=== PATIENT | female | born 1990 | race African-American/Black ===

== ENCOUNTER 2016-08-10 16:04 | Emergency (ER) | payer MEDICAID ==
[2016-08-10 16:23] VITALS: BP 166/106
--- NOTE | 2016-08-10 16:37 | ER Document Report ---
HPI - HPI Patient complains to provider of: dental pain Onset: Other - 4 months Onset/Duration: Persistent, Worse Quality of pain: Sharp Pain Level: 5 Context: Patient complains of dental pain for the past 4 months. Patient has an appointment on 08/28/2016. Patient denies any fever or facial swelling. Patient complains of headache on the same side as her toothache. Patient does have a history of hypertension and has been compliant with her medications. Associated Symptoms: Headache, Other - Dental pain. denies: Fever Exacerbated by: Denies Relieved by: Denies Similar symptoms previously: Yes Recently seen / treated by doctor: No - ROS ROS below otherwise negative: Yes Systems Reviewed and Negative: Yes All other systems reviewed and negative - CONSTITUTIONAL Constitutional: DENIES: Fever, Chills - EENT Notes: Dental pain - NEURO Neurology: REPORTS: Headache - GASTROINTESTINAL Gastrointestinal: DENIES: Nausea, Patient vomiting - REPRODUCTIVE Reproductive: DENIES: : - MUSCULOSKELETAL Musculoskeletal: DENIES: Extremity pain, Back Pain, Neck Pain - DERM Skin Color: Normal Skin Problems: None Past Medical History - General Information source: Patient - Social History Smoking Status: Current Every Day Smoker Frequency of alcohol use: None Drug Abuse: None Occupation: none Lives with: Family Family History: CAD, CVA, DM, Hyperlipidemia, Hypertension, Malignancy, Thyroid Disfunction - Past Medical History Cardiac Medical History: Reports: Hx Hypertension - is on labatolol took today takes bid. Has severe tooth ache Neurological Medical History: Reports: Hx Migraine Past Surgical History: Reports: Hx Oral Surgery - wisdom teeth - Immunizations Immunizations up to date: No Hx Diphtheria, Pertussis, Tetanus Vaccination: No Vertical Provider Document - CONSTITUTIONAL Agree With Documented VS: Yes Exam Limitations: No Limitations General Appearance: WD/WN, No Apparent Distress - INFECTION CONTROL TRAVEL OUTSIDE OF THE [place] IN LAST 30 DAYS: No - HEENT HEENT: Atraumatic, Normocephalic. negative: Pharyngeal Exudate, Pharyngeal Tenderness, Pharyngeal Erythema, Tympanic Membrane Red Mouth Diagram: 1 - tenderness, decay, no gingival abscess no trismus - NECK Neck: Normal Inspection, Supple. negative: Lymphadenopathy-Left, Lymphadenopathy-Right - RESPIRATORY Respiratory: Breath Sounds Normal, No Respiratory Distress O2 Sat by Pulse Oximetry: 100 - CARDIOVASCULAR Cardiovascular: Regular Rate, Regular Rhythm, No Murmur - MUSCULOSKELETAL/EXTREMETIES Musculoskeletal/Extremeties: MAEW - NEURO Level of Consciousness: Awake, Alert, Appropriate Motor/Sensory: No Motor Deficit - DERM Integumentary: Warm, Dry, No Rash Course - Re-evaluation Re-evalutation: 08/10/16 16:49 Patient [address] herself here. Patient is just requesting a prescription for something to take when she gets home. Patient's had headaches in the past and this is typical of headaches that she has had previously. - Vital Signs Vital signs: Temp Pulse Resp BP Pulse Ox 98.3 F 91 20 166/106 H 100 08/10/16 16:22 08/10/16 16:22 08/10/16 16:22 08/10/16 16:22 08/10/16 16:22 Discharge - Discharge Clinical Impression: Toothache, History of hypertension Condition: Stable Disposition: HOME, SELF-CARE Instructions: Oral Narcotic Medication ([facility]), Toothache ([facility]), Penicillin V K ( [facility]) Additional Instructions: Return immediately for any new or worsening symptoms Followup with your dental care provider, call tomorrow to make a followup appointment Prescriptions: Naproxen [Naprosyn 250 Nmg Tablet] 1 tab PO BID #14 tablet Oxycodone HCl/Acetaminophen [Percocet 5-325 mg Tablet] 1 tab PO ASDIR PRN #8 tablet PRN Reason: Penicillin V Potassium [Penicillin Vk 500 mg Tablet] 500 mg PO BID #20 tablet Referrals: [facility] [Provider Group] - Follow up as needed
== END 2016-08-10 17:10 | disposition home or self-care (01) ==
LOC: ER 16:04
DX: K08.9 Disorder of teeth and supporting structures, unspecified (principal); R51 Headache; F17.200 Nicotine dependence, unspecified, uncomplicated; I10 Essential (primary) hypertension
CPT/HCPCS: 99282

== ENCOUNTER 2016-08-17 14:25 | Emergency (ER) | payer MEDICAID ==
[2016-08-17] MEDS ORDERED: PENICILLIN V POTASSIUM 500 MG TABLET PO ONE (14:51)
[2016-08-17] MEDS ORDERED: ACETAMINOPHEN 325 MG TABLET PO ONE (14:51)
--- NOTE | 2016-08-17 14:51 | ER Document Report ---
ED Medical Screen (RME) - General Stated Complaint: TOOTH PAIN Time seen by provider: 14:50 Mode of Arrival: Ambulatory Information source: Patient Notes: 25 yo female c/o lower left tooth pain for several weeks, has a hole in it. Can; t stand the pain anymore. TRAVEL OUTSIDE OF THE [place] IN LAST 30 DAYS: No - Related Data Allergies/Adverse Reactions: hydrocodone [From [place]] Allergy (Verified 07/05/16 14:54) tramadol Allergy (Verified 07/05/16 14:54) diphenhydramine [From Benadryl] Adverse Reaction (Verified 07/05/16 14:54) Past Medical History - Past Medical History Cardiac Medical History: Reports: Hx Hypertension - is on labatolol took today takes bid. Has severe tooth ache Neurological Medical History: Reports: Hx Migraine Past Surgical History: Reports: Hx Oral Surgery - wisdom teeth - Immunizations Immunizations up to date: No Hx Diphtheria, Pertussis, Tetanus Vaccination: No
--- NOTE | 2016-08-17 17:03 | ER Document Report ---
ED Oral Problem - General Chief Complaint: Toothache Stated Complaint: TOOTH PAIN Time seen by provider: 16:58 Mode of Arrival: Ambulatory Information source: Patient Notes: 25-year-old female presents complaining about pain to left lower premolar where she is at a republican break off. He's had multiple emergency department visits for this complaint says it only intermittently causes problems that she has an appointment next week with a dentist for definitive management. She reports she is on antibiotics now for. She complains about diffuse headache which she says she Gets When the Dental Pain Flares. She Denies Fever, Chills, Nausea, Vomiting, Cough, Shortness Breath, Sore Throat, Chest or Back Pain. Physical Exam: General: Alert, appears well. HEENT: Normocephalic. Atraumatic. PERRLA. Extraocular movements intact. Oropharynx clear. There is obvious dental defect in the left lower premolar with no surrounding erythema or discharge no stridor horses drooling Neck: Supple. Non-tender. Respiratory: No respiratory distress. C Skin: Warm. Dry. Normal color. TRAVEL OUTSIDE OF THE [place] IN LAST 30 DAYS: No - Related Data Allergies/Adverse Reactions: hydrocodone [From [place]] Allergy (Verified 08/17/16 14:51) tramadol Allergy (Verified 08/17/16 14:51) diphenhydramine [From Benadryl] Adverse Reaction (Verified 08/17/16 14:51) Past Medical History - General Information source: Patient - Social History Smoking Status: Current Some Day Smoker Chew tobacco use (# tins/day): No Frequency of alcohol use: None Drug Abuse: None Family History: CAD, CVA, DM, Hyperlipidemia, Hypertension, Malignancy, Thyroid Disfunction Patient has suicidal ideation: No Patient has homicidal ideation: No - Past Medical History Cardiac Medical History: Reports: Hx Hypertension - is on labatolol took today takes bid. Has severe tooth ache Neurological Medical History: Reports: Hx Migraine Past Surgical History: Reports: Hx Oral Surgery - wisdom teeth - Immunizations Immunizations up to date: No Hx Diphtheria, Pertussis, Tetanus Vaccination: No Review of Systems - Review of Systems Constitutional: See HPI EENT: See HPI Cardiovascular: denies: Chest pain Respiratory: denies: Short of breath Gastrointestinal: denies: Abdominal pain Genitourinary: denies: Burning Musculoskeletal: denies: Back pain Hematologic/Lymphatic: denies: Swollen glands Neurological/Psychological: denies: Weakness Course - Re-evaluation Re-evalutation: 08/17/16 17:00 Patient does have a dental defect that would certainly be consistent with pain requiring narcotic analgesia. His however about the potential for abuse and diversion of these medications and that she should keep her dental appointment for definitive management without fail and she is in agreement Discharge - Discharge Clinical Impression: Dental caries Condition: Stable Disposition: HOME, SELF-CARE Additional Instructions: Dental Infection or Abscess You have an infection, perhaps an abscess (pus formation) of the gum around one of your teeth, which is probably decayed. If there is an abscess, it may drain on its own or it may need to be opened or lanced. Severe swelling or drainage around a tooth usually means a deep dental abscess which usually requires evaluation and treatment by a dentist or oral surgeon. Antibiotics may be prescribed while awaiting dental treatment. If you develop high fever with chills, worsening pain, or increasing swelling in the area, see a dentist or oral surgeon immediately or return to the Emergency Department immediately. Keep your dental appointment as scheduled Prescriptions: Oxycodone HCl/Acetaminophen [Percocet 5-325 mg Tablet] 1 tab PO QHS #15 tablet
[2016-08-17 17:19] VITALS: BP 149/94
== END 2016-08-17 17:19 | disposition home or self-care (01) ==
LOC: ER 14:25
DX: K02.9 Dental caries, unspecified (principal); K08.89 Other specified disorders of teeth and supporting structures; R51 Headache; F17.210 Nicotine dependence, cigarettes, uncomplicated
CPT/HCPCS: 99282; J3490 ×2

== ENCOUNTER 2016-09-27 20:27 | Emergency (ER) | payer MEDICAID ==
[2016-09-27 21:31] VITALS: BP 152/93
[2016-09-27] MEDS ORDERED: IBUPROFEN 800 MG TABLET PO ONE (21:35)
[2016-09-27] MEDS ORDERED: ONDANSETRON 4 MG TAB.RAPDIS PO ONE (21:35)
--- NOTE | 2016-09-27 21:36 | ER Document Report ---
ED Medical Screen (RME) - General Stated Complaint: FLU LIKE SYMPTOMS Mode of Arrival: Ambulatory Information source: Patient Notes: Patient complains of generalized body aches, chills, headache, cough for the past week. No fever. Patient does complain of nausea and vomiting 1. Patient reports diarrhea yesterday, none today. hx: Hypertension I have greeted and performed a rapid initial assessment of this patient. A comprehensive ED assessment and evaluation of the patient, analysis of test results and completion of the medical decision making process will be conducted by additional ED providers. TRAVEL OUTSIDE OF THE [place] IN LAST 30 DAYS: No - Related Data Allergies/Adverse Reactions: hydrocodone [From [place]] Allergy (Verified 08/17/16 14:51) tramadol Allergy (Verified 08/17/16 14:51) diphenhydramine [From Benadryl] Adverse Reaction (Verified 08/17/16 14:51) Past Medical History - Past Medical History Cardiac Medical History: Reports: Hx Hypertension - is on labatolol took today takes bid. Has severe tooth ache Neurological Medical History: Reports: Hx Migraine Past Surgical History: Reports: Hx Oral Surgery - wisdom teeth - Immunizations Immunizations up to date: No Hx Diphtheria, Pertussis, Tetanus Vaccination: No Physical Exam - Vital signs Vitals: Temp Pulse Resp BP 97.5 F 66 18 152/93 H 09/27/16 21:30 09/27/16 21:30 09/27/16 21:30 09/27/16 21:30 - General General appearance: Appears well, Alert In distress: None Course - Vital Signs Vital signs: Temp Pulse Resp BP Pulse Ox 97.5 F 66 18 152/93 H 09/27/16 21:30 09/27/16 21:30 09/27/16 21:30 09/27/16 21:30
== END 2016-09-27 22:03 | disposition left against medical advice (07) ==
LOC: ER 20:27
DX: Z53.9 Procedure and treatment not carried out, unspecified reason (principal); R52 Pain, unspecified; R51 Headache; R05 Cough; R11.2 Nausea with vomiting, unspecified; R19.7 Diarrhea, unspecified
CPT/HCPCS: 99281

== ENCOUNTER 2016-11-14 10:14 | Emergency (ER) | payer MEDICAID ==
[2016-11-14] MEDS ORDERED: IBUPROFEN 800 MG TABLET PO ONE (11:00)
[2016-11-14] MEDS ORDERED: ACETAMINOPHEN 325 MG TABLET PO ONE (11:02)
--- NOTE | 2016-11-14 11:05 | ER Document Report ---
ED Oral Problem - General Chief Complaint: Toothache Stated Complaint: TOOTH PAIN Time seen by provider: 10:59 Mode of Arrival: Ambulatory Information source: Patient Notes: 26-year-old female presented to ED for dental pain to the left upper back jaw. She had teeth removed a week ago and she states that the dentist headache sinus cavity when he did that and he gave her pain medicine at the time that he has run out of pain medicine and cannot get back into him for another week and she is hurting in her jaw. TRAVEL OUTSIDE OF THE [place] IN LAST 30 DAYS: No - HPI Patient complains to provider of: Toothache Onset: Last week - Patient has been given multiple prescriptions for Percocet for dental pain in the last month Quality of pain: Sharp, Throbbing Context: Recent dental extractions Associated symptoms: Jaw pain Worsened by: Cold Similar symptoms previously: Yes Recently seen / treated by doctor/dentist: Yes - Related Data Allergies/Adverse Reactions: hydrocodone [From [place]] Allergy (Verified 08/17/16 14:51) tramadol Allergy (Verified 08/17/16 14:51) diphenhydramine [From Benadryl] Adverse Reaction (Verified 08/17/16 14:51) Past Medical History - General Information source: Patient - Social History Smoking Status: Former Smoker Cigarette use (# per day): No Chew tobacco use (# tins/day): No Smoking Education Provided: No Frequency of alcohol use: None Drug Abuse: None Occupation: none Lives with: Parents Family History: CAD, CVA, DM, Hyperlipidemia, Hypertension, Malignancy, Thyroid Disfunction Patient has suicidal ideation: No Patient has homicidal ideation: No - Past Medical History Cardiac Medical History: Reports: Hx Hypertension - is on labatolol took today takes bid. Has severe tooth ache Pulmonary Medical History: Reports: None EENT Medical History: Reports: None Neurological Medical History: Reports: Hx Migraine Endocrine Medical History: Reports: None Renal/ Medical History: Reports: None Malignancy Medical History: Reports: None GI Medical History: Reports: None Musculoskeltal Medical History: Reports None Skin Medical History: Reports None Psychiatric Medical History: Reports: None Traumatic Medical History: Reports: None Infectious Medical History: Reports: None Past Surgical History: Reports: Hx Oral Surgery - wisdom teeth - Immunizations Immunizations up to date: No Hx Diphtheria, Pertussis, Tetanus Vaccination: No Review of Systems - Review of Systems Constitutional: No symptoms reported EENT: Mouth pain, Other - Jaw pain at site of previous dental extraction Cardiovascular: No symptoms reported Respiratory: No symptoms reported Gastrointestinal: No symptoms reported Genitourinary: No symptoms reported Female Genitourinary: No symptoms reported Musculoskeletal: No symptoms reported Skin: No symptoms reported Hematologic/Lymphatic: No symptoms reported Neurological/Psychological: No symptoms reported Physical Exam - Vital signs Vitals: Temp Pulse Resp BP Pulse Ox 98.7 F 95 16 183/107 H 100 11/14/16 10:18 11/14/16 10:18 11/14/16 10:18 11/14/16 10:18 11/14/16 10:18 Interpretation: Normal - General General appearance: Appears well, Alert - HEENT Head: Normocephalic, Atraumatic Eyes: Normal Pupils: PERRL Ears: Normal External canal: Normal Tympanic membrane: Normal Sinus: Normal Nasal: Normal Mouth/Lips: Normal Mucous membranes: Normal Teeth diagram: 1 - Recent dental extractions. No redness swelling no signs or symptoms of dry socket at this time. Patient recommended to follow-up with the dentist who extracted the teeth. Pharynx: Normal Neck: Normal - Respiratory Respiratory status: No respiratory distress Chest status: Nontender Breath sounds: Normal Chest palpation: Normal - Cardiovascular Rhythm: Regular Heart sounds: Normal auscultation Murmur: No - Abdominal Inspection: Normal Distension: No distension Bowel sounds: Normal Tenderness: Nontender Organomegaly: No organomegaly - Back Back: Normal, Nontender - Extremities General upper extremity: Normal inspection, Nontender, Normal color, Normal ROM , Normal temperature General lower extremity: Normal inspection, Nontender, Normal color, Normal ROM , Normal temperature, Normal weight bearing. No: April's sign - Neurological Neuro grossly intact: Yes Cognition: Normal Orientation: AAOx4 [place] Coma Scale Eye Opening: Spontaneous [place] Coma Scale Verbal: Oriented [place] Coma Scale Motor: Obeys Commands [place] Coma Scale Total: 15 Speech: Normal Motor strength normal: LUE, RUE, LLE, RLE Sensory: Normal - Psychological Associated symptoms: Normal affect, Normal mood - Skin Skin Temperature: Warm Skin Moisture: Dry Skin Color: Normal Course - Vital Signs Vital signs: Temp Pulse Resp BP Pulse Ox 97.7 F 80 20 148/106 H 100 11/14/16 11:23 11/14/16 11:23 11/14/16 11:23 11/14/16 11:23 11/14/16 11:23 Discharge - Discharge Clinical Impression: right upper jaw pain, recent dental extraction Condition: Stable Disposition: HOME, SELF-CARE Additional Instructions: you were seen today for general pain in the area apartment recent dental extraction. The dentist gave you a prescription for Percocet and he states were not able to get back in to see him today. I am not able to keep using narcotics for this dental pain please try to recall the dentist again and get back in to see him.. Chronic Pain Control Stress, inactivity, and depression make pain more severe regardless of the cause of the pain. Stress and poor physical condition can cause pain such as headaches and backache. Relaxation: Rest in a quiet place with your eyes closed for 20 minutes twice daily. Concentrate on a pleasant image, or simply "feel" your breathing. Clear your mind. Stress management: Deal with your "stressors." Either take action, or eliminate the stressor from your life. Don't let things hang over you. Accept those things you can't change. Nutrition: Eat small, balanced meals -- don't skip, don't overeat. Meals should be high-carbohydrate, low-sugar, low-fat. Exercise: Exercise helps painful conditions and eases stress. Get 30 minutes of moderate exercise, five days a week. Do an activity that does not flare your pain. Precautions: Pain which continues to disrupt daily activities, or which changes in nature, requires a medical evaluation. Pain Clinic referral is available. We do not manage chronic pain in the Emergency Department. We will try to appropriately help you through an acute flare of your chronic painful condition , but for on-going chronic pain that does not improve, you will need to see your private doctor or painter hand. We do not provide repeated medication management of chronic painful conditions. If you wish, we can provide the name of local pain management physicians. TOOTHACHE: Your pain is due to recent dental extraction. The tooth must be repaired in order for you to feel better. You will, therefore, be referred to a dentist. We do not have dentists on the staff at [facility]. Severe swelling or drainage around a tooth usually means a dental abscess. This also requires evaluation and treatment by the dentist, but antibiotics may be prescribed while awaiting dental treatment. You should be rechecked immediately if you develop major swelling of the face, increasing pain, a lump in the jaw or gums, headache, difficulty swallowing, or fever. FOLLOW-UP CARE: You have been referred for follow-up care to the dentists listed below. Call the dentists office for an appointment as you were instructed or within the next two days. If you experience worsening or a significant change in your symptoms, notify the physician immediately or return to the Emergency Department at any time for re-evaluation. [facility] [address] [place] [address] [facility] [address] [facility] [address] [facility] ([facility]) [facility] [address] [email or web address] [address] [place] [address] Thursday- 8:00am to 5:00 pm Will see patients from other [facility]. Charges based on income and family size and accepts Medicare, Medicaid, and Insurances Will pull molars [facility] [address] Hours of Operation 8:00 am - 4:30 pm weekdays The following dental offices accept Medicaid: [facility] Dr. Begum Dr. Kevin Dr. Mcrae Dr. Humphries Luís Trejo Lutsavage, and [facility] Dr. Schaeffer ([place]) Dr. Mitchell ([place]) [facility] Drs. Briceño and Janes ([place]) Dr. Landry ([place]) [facility] Dr. Delgado ([place]) Drs. Lezama and ([place]) Medicaid Care Line Forms: Elevated Blood Pressure Referrals: GIUSEPPE GOEL MD [Primary Care Provider] - Follow up as needed
[2016-11-14 11:24] VITALS: BP 148/106
== END 2016-11-14 11:24 | disposition home or self-care (01) ==
LOC: ER 10:14
DX: K08.109 Complete loss of teeth, unspecified cause, unspecified class (principal); R68.84 Jaw pain; M54.89 Other dorsalgia; Z87.891 Personal history of nicotine dependence
CPT/HCPCS: 99282; J3490

== ENCOUNTER 2017-03-08 17:20 | Emergency (ER) | payer MEDICAID ==
[2017-03-08 17:50] VITALS: BP 157/94
[2017-03-08] MEDS ORDERED: OXYCODONE-ACETAMINOPHEN 5-325 MG TABLET PO ONE (20:18)
[2017-03-08 20:37] LABS: AMORPHOUS SEDIMENT,URINE TRACE /HPF; APPEARANCE,URINE CLEAR; BILIRUBIN,URINE NEGATIVE (NEGATIVE); GLUCOSE, URINE NEGATIVE (NEGATIVE); KETONES,URINE NEGATIVE (NEGATIVE); LEUKOCYTE ESTERASE,URINE NEGATIVE (NEGATIVE); NITRITE,URINE NEGATIVE (NEGATIVE); PROTEIN,URINE 100 mg/dL (NEGATIVE); UROBILINOGEN,URINE NEGATIVE mg/dL (<2.0)
[2017-03-08] MEDS ORDERED: METRONIDAZOLE 500 MG TABLET PO ONE (20:43)
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
[2017-03-08 20:46] LABS: CHLAM PCR NOT DETECTED (NOT DETECT)
== END 2017-03-08 20:50 | disposition home or self-care (01) ==
LOC: ER 17:20
DX: G89.29 Other chronic pain (principal); M54.5 Low back pain; N76.0 Acute vaginitis; B96.89 Other specified bacterial agents as the cause of diseases classified elsewhere; I10 Essential (primary) hypertension; Z91.81 History of falling; Z88.5 Allergy status to narcotic agent
CPT/HCPCS: 99283; 87210; 81025; 81001; 87491; 87591; J3490

== ENCOUNTER 2017-04-14 18:26 | Emergency (ER) | payer MEDICAID ==
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
[2017-04-14 19:25] LABS: ABSOLUTE BASOPHILS # (AUTO) 0.1 10^3/uL (0.0-0.2); ABSOLUTE MONOCYTES (AUTO) 0.6 10^3/uL (0.1-1.4); ABSOLUTE NEUT (AUTO) 3.9 10^3/uL (1.7-8.2); BASOPHILS % (AUTO) 0.9 % (0-2); EOSINOPHILS % (AUTO) 0.5 % (0-6); HEMATOCRIT 36.7 % (36.0-47.0); HEMOGLOBIN 12.5 g/dL (12.0-15.5); HGB HCT DIFFERENCE 0.8; LYMPHOCYTES % (AUTO) 39.9 % (13-45); MEAN CORPUSCULAR HEMOGLOBIN 27.8 pg (27.0-33.4); MEAN CORPUSCULAR HGB CONC 34.1 g/dL (32.0-36.0); MEAN CORPUSCULAR VOLUME 81 fl (80-97); RED BLOOD COUNT 4.52 10^6/uL (3.72-5.28); RED CELL DISTRIBUTION WIDTH 12.8 % (11.5-14.0); SEGMENTED NEUTROPHILS % (AUTO) 50.7 % (42-78); WHITE BLOOD COUNT 7.6 10^3/uL (4.0-10.5)
[2017-04-14 19:30] LABS: APPEARANCE,URINE SLIGHTLY-CLOUDY; BILIRUBIN,URINE SMALL (NEGATIVE); GLUCOSE, URINE NEGATIVE (NEGATIVE); KETONES,URINE TRACE mg/dL (NEGATIVE); LEUKOCYTE ESTERASE,URINE TRACE (NEGATIVE); NITRITE,URINE NEGATIVE (NEGATIVE); PROTEIN,URINE 100 mg/dL (NEGATIVE); URINE SPECIFIC GRAVITY 1.038
[2017-04-14 19:42] LABS: ANION GAP 14 (5-19); BLOOD UREA NITROGEN 13 mg/dL (7-20); CALCIUM 10.2 mg/dL (8.4-10.2); CARBON DIOXIDE 26 mmol/L (22-30); CHLORIDE 103 mmol/L (98-107); CREATININE RESULT 0.75 mg/dL (0.52-1.25); GLUCOSE 83 mg/dL (75-110); POTASSIUM 3.7 mmol/L (3.6-5.0); SODIUM 142.8 mmol/L (137-145)
--- NOTE | 2017-04-14 19:50 | ER Document Report ---
ED General - General Chief Complaint: Back Pain Stated Complaint: FALL BACK PAIN Time Seen by Provider: 04/14/17 18:46 Mode of Arrival: Ambulatory Information source: Patient Notes: 26-year-old female presents to ED for pelvic pain and discharge. She states the pelvic discharge since . She thought it was a yeast infection and took Monistat and Thursday. Then the discharge changed and started to have an odor and look like a bacterial vaginosis so she stopped the Monistat. She states that she has a pelvic pain with the foul-smelling discharge. She denies any pain or problems with urination. She does not believe she is . She states that last night she fell down the stairs and injured her lower back. She does not have any bruises and is able to walk. She denies any loss of bowel or bladder control she denies any loss of sensation denies any loss of any muscle control. Patient offered Tylenol and Lidoderm for her pain and refused both patient was given an ice pack for her pain. TRAVEL OUTSIDE OF THE [place] IN LAST 30 DAYS: No - HPI Onset: Other - Onset/Duration: Gradual Quality of pain: Achy, Sharp Severity: Severe Pain Level: 5 Associated symptoms: Other - Vaginal discharge and pelvic pain, back pain Exacerbated by: Movement Relieved by: Denies Similar symptoms previously: Yes Recently seen / treated by doctor: No - Related Data Allergies/Adverse Reactions: hydrocodone [From [place]] Allergy (Verified 04/14/17 18:44) ketorolac [From Toradol] Allergy (Verified 04/14/17 18:44) tramadol Allergy (Verified 04/14/17 18:44) diphenhydramine [From Benadryl] Adverse Reaction (Verified 04/14/17 18:44) Past Medical History - General Information source: Patient - Social History Smoking Status: Never Smoker Cigarette use (# per day): No Chew tobacco use (# tins/day): No Smoking Education Provided: No Frequency of alcohol use: None Drug Abuse: None Lives with: Family Family History: CAD, CVA, DM, Hyperlipidemia, Hypertension, Malignancy, Thyroid Disfunction Patient has suicidal ideation: No Patient has homicidal ideation: No - Past Medical History Cardiac Medical History: Reports: Hx Hypertension - is on labatolol took today takes bid. Has severe tooth ache Pulmonary Medical History: Reports: None EENT Medical History: Reports: None Neurological Medical History: Reports: Hx Migraine Endocrine Medical History: Reports: None Renal/ Medical History: Reports: None Malignancy Medical History: Reports: None GI Medical History: Reports: None Musculoskeltal Medical History: Reports Other - chronic back pain Skin Medical History: Reports None Psychiatric Medical History: Reports: None Traumatic Medical History: Reports: None Infectious Medical History: Reports: None Past Surgical History: Reports: Hx Oral Surgery - wisdom teeth - Immunizations Immunizations up to date: No Hx Diphtheria, Pertussis, Tetanus Vaccination: No Review of Systems - Review of Systems Constitutional: No symptoms reported EENT: No symptoms reported Cardiovascular: No symptoms reported Respiratory: No symptoms reported Gastrointestinal: No symptoms reported Genitourinary: No symptoms reported Female Genitourinary: No symptoms reported Musculoskeletal: No symptoms reported Skin: No symptoms reported Hematologic/Lymphatic: No symptoms reported Neurological/Psychological: No symptoms reported -: Yes All other systems reviewed and negative Physical Exam - Vital signs Vitals: Temp Pulse Resp BP Pulse Ox 98.6 F 90 18 181/97 H 100 04/14/17 18:37 04/14/17 18:37 04/14/17 18:37 04/14/17 18:37 04/14/17 18:37 Interpretation: Normal - General General appearance: Appears well, Alert - HEENT Head: Normocephalic, Atraumatic Eyes: Normal Pupils: PERRL - Respiratory Respiratory status: No respiratory distress Chest status: Nontender Breath sounds: Normal Chest palpation: Normal - Cardiovascular Rhythm: Regular Heart sounds: Normal auscultation Murmur: No - Abdominal Inspection: Normal Distension: No distension Bowel sounds: Normal Tenderness: Nontender Organomegaly: No organomegaly - Genitourinary External exam: Normal Speculum exam: Vaginal discharge - very foul smelling brownish colored vaginal discharge Vaginal bleeding: Mild Bimanuel exam: Cervical motion tender, Adnexal tenderness - Back Back: Normal, Nontender - Extremities General upper extremity: Normal inspection, Nontender, Normal color, Normal ROM , Normal temperature General lower extremity: Normal inspection, Nontender, Normal color, Normal ROM , Normal temperature, Normal weight bearing. No: April's sign - Neurological Neuro grossly intact: Yes Cognition: Normal Orientation: AAOx4 [place] Coma Scale Eye Opening: Spontaneous [place] Coma Scale Verbal: Oriented [place] Coma Scale Motor: Obeys Commands [place] Coma Scale Total: 15 Speech: Normal Motor strength normal: LUE, RUE, LLE, RLE Sensory: Normal - Psychological Associated symptoms: Normal affect, Normal mood - Skin Skin Temperature: Warm Skin Moisture: Dry Skin Color: Normal Course - Re-evaluation Re-evalutation: 04/14/17 22:02 Ultrasound and labs discussed with patient. Written reports of labs and ultrasound given to patient. Patient was treated with azithromycin and Rocephin for her PID. Discussed positive chlamydia result with patient. Patient was given instructions about no sexual contact with anyone for 7 days after treatment. Patient was also instructed to follow-up with her primary doctor and with [facility] concerning her hydrosalpinx. - Vital Signs Vital signs: Temp Pulse Resp BP Pulse Ox 98.6 F 90 18 181/97 H 100 04/14/17 18:37 04/14/17 18:37 04/14/17 18:37 04/14/17 18:37 04/14/17 18:37 - Laboratory Result Diagrams: 04/14/17 19:00 04/14/17 19:00 Laboratory results interpreted by me: 04/14/17 04/14/17 19:00 19:58 Urine Protein 100 H Urine Ketones TRACE H Urine Bilirubin SMALL H Urine Urobilinogen 4.0 H Ur Leukocyte Esterase TRACE H Urine Ascorbic Acid 20 H Chlamydia DNA (PCR) DETECTED H - Diagnostic Test Radiology reviewed: Image reviewed, Reports reviewed Discharge - Discharge Clinical Impression: Pelvic pain, Hydrosalpinx, Vaginal discharge Condition: Stable Disposition: HOME, SELF-CARE Additional Instructions: PELVIC PAIN: There are many causes of pain in the pelvic area. The cause could be the tubes, ovaries, uterus, intestines, appendix, pelvic muscles and connective tissue, or the urinary tract. The cause of your pelvic pain is not clear. However, it seems safe to treat you outside the hospital. If the pain sounds like a temporary problem, we sometimes wait to see if it goes away. Other patients may need additional tests, such as pelvic ultrasound or cultures. Conditions may change. Call us or come back for reexamination if any problems occur, such as: (1) Pain that becomes more severe, steady, or becomes concentrated in one specific area. Also, pain that is more severe with movement or coughing. (2) Vomiting that persists or becomes more frequent. (3) Blood in the vomitus, urine, or bowel movements. Blood in the stool may have a tarry or black appearance. (4) Shaking chills or fever greater than 100 degrees. (5) The abdomen becomes more distended or swollen. (6) Bowel movements cease. (7) Heavy vaginal bleeding. PELVIC INFLAMMATORY DISEASE: You have been diagnosed as having pelvic inflammatory disease (PID). This is an infection of the fallopian tubes and surrounding areas of the pelvis. Symptoms are usually pelvic pain and discharge. The infection can do permanent damage to the tubes and ovaries. It should be taken very seriously. Treatment is antibiotics, which may be given by vein or by injection if the infection seems serious. It's important that you receive all recommended medication. Condoms help prevent spread of this infection to others. Because this infection is spread sexually, it's important that your sexual partner be checked before resuming sexual relations. If a culture shows gonorrhea or chlamydia organisms, the law requires that this be reported to the health department. Call the doctor or return at once if you develop increasing fever, rash, severe pelvic pain, vaginal bleeding (other than your period), or problems with your bladder or bowels. CEPHALOSPORINS: An antibiotic of the cephalosporin class has been prescribed. This type of antibiotic covers a wide variety of infections, including those of the skin, lungs, middle ear, and urinary tract. This antibiotic is somewhat similar to the penicillin family. In rare cases , a person who is allergic to penicillin will also be allergic to this medication. If you have had a severe allergic reaction to penicillin, and have not taken this antibiotic since that time, notify your doctor. Antibiotics which cover many germs ("broad spectrum" antibiotics) are more likely to cause diarrhea or "yeast" infections. Women prone to vaginal yeast problems may suffer an attack after taking this antibiotic. In infants, oral thrush (white spots "stuck" on the cheek) or yeast diaper rash may result. See your doctor if these problems occur. Call the doctor at once if you develop hives, itching, shortness of breath , or lightheadedness. AZITHROMYCIN: Azithromycin (Zithromax) is a broad spectrum antibiotic in the same class as erythromycin. It can treat a variety of bacterial infections, but is most frequently used for respiratory infections. Azithromycin is extremely long-lasting. It accumulates in body tissues and continues to kill bacteria for many days. In order to improve absorption, Azithromycin should be taken at least one hour before or two hours after a meal. It does not have the same strong tendency to upset the stomach as erythromycin and is usually very well tolerated. Patients who have had a rash or other true allergic reactions to erythromycin should not take this medication. Call if you develop gastrointestinal distress, severe diarrhea, rash, hives, itching, or shortness of breath. HYDROSALPINX After PID resolves, the damaged fallopian tube can become blocked , fill with sterile fluid, and become enlarged. Damage to the fallopian tube from previous surgery or adhesions can also result in hydrosalpinx. Hydrosalpinx may be associated with pain or may be asymptomatic except for tubal factor infertility. Hydrosalpinx in patients undergoing in vitro fertilization (IVF) has negative consequences on the rates of , implantation, early loss, , and live delivery FOLLOW-UP CARE: If you have been referred to a physician for follow-up care, call the physician s office for an appointment as you were instructed or within the next two days. If you experience worsening or a significant change in your symptoms, notify the physician immediately or return to the Emergency Department at any time for re-evaluation. Forms: Elevated Blood Pressure Referrals: GIUSEPPE GOEL MD [Primary Care Provider] - Follow up as needed [facility] [Provider Group] - Follow up as needed
[2017-04-14] MEDS ORDERED: CEFTRIAXONE INJ 250 MG VIAL IM ONE (21:23)
[2017-04-14] MEDS ORDERED: AZITHROMYCIN 250 MG TABLET PO ONE (21:23)
[2017-04-14] MEDS ORDERED: LIDOCAINE 1% INJ-PF (10 MG/ML) 30 ML SDV INJ ONE (21:23)
--- NOTE | 2017-04-14 21:39 | RADIOLOGY REPORT (SQ) ---
EXAM DESCRIPTION: U/S NON-OB PELVIS TV W/O DOP COMPLETED DATE/TIME: 04/14/2017 9:25 pm REASON FOR STUDY: pelvic pain, discharge COMPARISON: None. TECHNIQUE: Dynamic and static grayscale images acquired of the pelvis via transvaginal approach and recorded on PACS. Additional selected color Doppler and spectral images recorded. LIMITATIONS: None. FINDINGS: UTERUS: Contour normal. No mass. ENDOMETRIAL STRIPE: No focal or generalized thickening. No masses. CERVIX: No nabothian cysts. RIGHT OVARY: No abnormal masses. RIGHT OVARY DOPPLER: Normal arterial vascular flow without evidence for torsion. LEFT OVARY: No abnormal masses. LEFT OVARY DOPPLER: Normal arterial vascular flow without evidence for torsion. FREE FLUID: None noted. OTHER: Nonvascular tubular structure adjacent to the right ovary. MEASUREMENTS: UTERUS: 3.6 x 4.4 x 8.6 cm. ENDOMETRIAL STRIPE: 4 mm. RIGHT OVARY: 2.2 x 2.5 x 3.1 cm. LEFT OVARY: 1.5 x 2.8 x 3.1 cm. IMPRESSION: TUBULAR STRUCTURE ADJACENT TO THE RIGHT OVARY, POSSIBLY A HYDROSALPINX. OTHERWISE UNREM ARKABLE PELVIC ULTRASOUND. TECHNICAL DOCUMENTATION: JOB ID: [id number] [employer]- All Rights Reserved
[2017-04-14 21:40] LABS: CHLAM PCR DETECTED (NOT DETECT)
[2017-04-14 22:05] VITALS: BP 186/120
== END 2017-04-14 22:04 | disposition home or self-care (01) ==
LOC: ER 18:26
DX: R10.2 Pelvic and perineal pain (principal); N70.11 Chronic salpingitis; N89.8 Other specified noninflammatory disorders of vagina; M54.9 Dorsalgia, unspecified; W10.9XXA Fall (on) (from) unspecified stairs and steps, initial encounter; I10 Essential (primary) hypertension; G89.29 Other chronic pain; Z88.6 Allergy status to analgesic agent
CPT/HCPCS: 99284; 96372; 36415; 87210; 85025; 81025; 80048; 81001; 87491; 87591; 76830; Q0144; J3490; J0696

== ENCOUNTER 2017-04-22 14:16 | Emergency (ER) | payer MEDICAID ==
[2017-04-22] MEDS ORDERED: METRONIDAZOLE 500 MG TABLET PO ONE (15:11)
[2017-04-22] MEDS ORDERED: DOXYCYCLINE HYCLATE 100 MG TABLET PO ONE (15:11)
--- NOTE | 2017-04-22 15:14 | ER Document Report ---
ED GI/ - General Chief Complaint: Vaginal Discharge Stated Complaint: PELVIC PAIN,VAGINAL DISCHARGE Time Seen by Provider: 04/22/17 14:57 Mode of Arrival: Ambulatory Information source: Patient Notes: 26-year-old female presented to ED for continued pelvic pain and discharge. She was treated last week for chlamydia. She states she has not been sexually active since then. She was also diagnosed with hydrosalpinx and PID. TRAVEL OUTSIDE OF THE [place] IN LAST 30 DAYS: No - HPI Patient complains to provider of: Pelvic pain, Vaginal discharge Onset: Other - Still continues Timing/Duration: Persistent Quality of pain: Sharp, Throbbing Severity at maximum: Severe Severity in ED: Moderate Pain Level: 2 Location: Pelvis Vaginal bleeding (Compared to normal period): None Associated symptoms: Vaginal discharge Exacerbated by: Movement Relieved by: Denies Similar symptoms previously: Yes Recently seen / treated by doctor: Yes - Related Data Allergies/Adverse Reactions: hydrocodone [From [place]] Allergy (Verified 04/22/17 14:20) ketorolac [From Toradol] Allergy (Verified 04/22/17 14:20) tramadol Allergy (Verified 04/22/17 14:20) diphenhydramine [From Benadryl] Adverse Reaction (Verified 04/22/17 14:20) Past Medical History - General Information source: Patient - Social History Smoking Status: Never Smoker Cigarette use (# per day): No Chew tobacco use (# tins/day): No Smoking Education Provided: No Frequency of alcohol use: None Drug Abuse: None Lives with: Family Family History: CAD, CVA, DM, Hyperlipidemia, Hypertension, Malignancy, Thyroid Disfunction - Past Medical History Cardiac Medical History: Reports: Hx Hypertension - is on labatolol took today takes bid. Has severe tooth ache Pulmonary Medical History: Reports: None EENT Medical History: Reports: None Neurological Medical History: Reports: Hx Migraine Endocrine Medical History: Reports: None Renal/ Medical History: Reports: Hx Pelvic Inflammatory Disease Malignancy Medical History: Reports: None Musculoskeltal Medical History: Reports Hx Arthritis, Reports Hx Musculoskeletal Trauma Skin Medical History: Reports None Psychiatric Medical History: Reports: None Traumatic Medical History: Reports: None Infectious Medical History: Reports: None Past Surgical History: Reports: Hx Oral Surgery - wisdom teeth - Immunizations Immunizations up to date: No Hx Diphtheria, Pertussis, Tetanus Vaccination: No Review of Systems - Review of Systems Constitutional: No symptoms reported EENT: No symptoms reported Cardiovascular: No symptoms reported Respiratory: No symptoms reported Gastrointestinal: No symptoms reported Female Genitourinary: Vaginal discharge, Other - pelvic pain Musculoskeletal: No symptoms reported Skin: No symptoms reported Hematologic/Lymphatic: No symptoms reported Neurological/Psychological: No symptoms reported -: Yes All other systems reviewed and negative Physical Exam - Vital signs Vitals: Temp Pulse Resp BP Pulse Ox 97.6 F 89 16 152/98 H 100 04/22/17 14:20 04/22/17 14:20 04/22/17 14:20 04/22/17 14:20 04/22/17 14:20 Interpretation: Normal - General General appearance: Appears well, Alert - HEENT Head: Normocephalic, Atraumatic Eyes: Normal Pupils: PERRL - Respiratory Respiratory status: No respiratory distress Chest status: Nontender Breath sounds: Normal Chest palpation: Normal - Cardiovascular Rhythm: Regular Heart sounds: Normal auscultation Murmur: No - Abdominal Inspection: Normal Distension: No distension Bowel sounds: Normal Tenderness: Tender - right pelvic pain Organomegaly: No organomegaly - Back Back: Normal, Nontender - Extremities General upper extremity: Normal inspection, Nontender, Normal color, Normal ROM , Normal temperature General lower extremity: Normal inspection, Nontender, Normal color, Normal ROM , Normal temperature, Normal weight bearing. No: April's sign - Neurological Neuro grossly intact: Yes Cognition: Normal Orientation: AAOx4 [place] Coma Scale Eye Opening: Spontaneous Far[place]h Coma Scale Verbal: Oriented Far[place] Coma Scale Motor: Obeys Commands [place] Coma Scale Total: 15 Speech: Normal Motor strength normal: LUE, RUE, LLE, RLE Sensory: Normal - Psychological Associated symptoms: Normal affect, Normal mood - Skin Skin Temperature: Warm Skin Moisture: Dry Skin Color: Normal Course - Re-evaluation Re-evalutation: 04/22/17 22:26 Care was consulted concerning this continued pelvic inflammatory pain spoke with Dr. Nelson who stated the patient would need to be on Flagyl twice daily 14 days and doxycycline twice daily 14 days these were ordered patient was informed of this discussion and patient was instructed to please follow-up with [facility]. Prescriptions were written and patient was discharged home. - Vital Signs Vital signs: Temp Pulse Resp BP Pulse Ox 97.5 F 79 16 139/99 H 97 04/22/17 15:31 04/22/17 15:31 04/22/17 15:31 04/22/17 15:31 04/22/17 15:31 Discharge - Discharge Clinical Impression: PID (acute pelvic inflammatory disease) Condition: Stable Disposition: HOME, SELF-CARE Additional Instructions: PELVIC PAIN: There are many causes of pain in the pelvic area. The cause could be the tubes, ovaries, uterus, intestines, appendix, pelvic muscles and connective tissue, or the urinary tract. The cause of your pelvic pain is not clear. However, it seems safe to treat you outside the hospital. If the pain sounds like a temporary problem, we sometimes wait to see if it goes away. Other patients may need additional tests, such as pelvic ultrasound or cultures. Conditions may change. Call us or come back for reexamination if any problems occur, such as: (1) Pain that becomes more severe, steady, or becomes concentrated in one specific area. Also, pain that is more severe with movement or coughing. (2) Vomiting that persists or becomes more frequent. (3) Blood in the vomitus, urine, or bowel movements. Blood in the stool may have a tarry or black appearance. (4) Shaking chills or fever greater than 100 degrees. (5) The abdomen becomes more distended or swollen. (6) Bowel movements cease. (7) Heavy vaginal bleeding. PELVIC INFLAMMATORY DISEASE: You have been diagnosed as having pelvic inflammatory disease (PID). This is an infection of the fallopian tubes and surrounding areas of the pelvis. Symptoms are usually pelvic pain and discharge. The infection can do permanent damage to the tubes and ovaries. It should be taken very seriously. Treatment is antibiotics, which may be given by vein or by injection if the infection seems serious. It's important that you receive all recommended medication. Condoms help prevent spread of this infection to others. Because this infection is spread sexually, it's important that your sexual partner be checked before resuming sexual relations. If a culture shows gonorrhea or chlamydia organisms, the law requires that this be reported to the health department. Call the doctor or return at once if you develop increasing fever, rash, severe pelvic pain, vaginal bleeding (other than your period), or problems with your bladder or bowels. DOXYCYCLINE: Doxycycline (Vibramycin, Doryx) is an antibiotic of the tetracycline family. This type of drug is useful for infections of the respiratory tract and genital tract, and is sometimes used for intestinal infections. Unlike most tetracyclines, doxycycline can be taken with food. It is longer acting, and (usually) less prone to side effects than regular tetracycline. Tetracycline antibiotics can stain immature teeth and SHOULD NOT BE TAKEN BY CHILDREN, NURSING MOTHERS, OR WOMEN. Tetracyclines can make you more prone to sunburn. Abdominal cramping, nausea, and diarrhea are occasional side effects. Women may experience vaginal yeast infections. Call the doctor at once if you develop hives, itching, shortness of breath , or lightheadedness. METRONIDAZOLE: Metronidazole (Flagyl) has been prescribed. This medication is used to kill a type of bacteria called anaerobes, and protozoan parasites such as trichomonas and Giardia. Flagyl often causes a metallic taste in the mouth and mild nausea. Do not use alcohol in any form with Flagyl (including alcohol in medication elixirs). Flagyl interacts with alcohol to cause flushing, palpitations, headache, stomach cramps, and vomiting. Do not use Flagyl if you are taking Antabuse (disulfiram). Call the doctor at once if you develop rash, shortness of breath, itching, or lightheadedness. ORAL NARCOTIC MEDICATION: You have been given a prescription for pain control. This medication is a narcotic. It's best taken with food, as nausea can result if taken on an empty stomach. Don't operate machinery or drive within six hours of taking this medication. Do not combine this medicine with alcohol, or with any medication which can cause sedation (such as cold tablets or sleeping pills) unless you get permission from the physician. Narcotics tend to cause constipation. If possible, drink plenty of fluids and eat a diet high in fiber and fruits. Please be aware that prescription narcotics also have the potential for abuse. People become addicted to these medications because of the general sense of wellbeing that they induce. This feeling along with a significant reduction in tension, anxiety, and aggression provides a stimulating seductive quality to these drugs. Once your pain is under control, we encourage you to discard your unused narcotics. FOLLOW-UP CARE: If you have been referred to a physician for follow-up care, call the physician s office for an appointment as you were instructed or within the next two days. If you experience worsening or a significant change in your symptoms, notify the physician immediately or return to the Emergency Department at any time for re-evaluation. Prescriptions: Doxycycline Hyclate 100 mg PO BID #28 tablet Metronidazole [Flagyl 500 mg Tablet] 500 mg PO BID #28 tablet Oxycodone HCl/Acetaminophen [Percocet 5-325 mg Tablet] 1 tab PO BIDP PRN #14 tablet PRN Reason: Forms: Elevated Blood Pressure Referrals: [facility] [Provider Group] - Follow up as needed
[2017-04-22 15:36] VITALS: BP 139/99
== END 2017-04-22 15:38 | disposition home or self-care (01) ==
LOC: ER 14:16
DX: N73.0 Acute parametritis and pelvic cellulitis (principal); A74.9 Chlamydial infection, unspecified; N89.8 Other specified noninflammatory disorders of vagina; R10.2 Pelvic and perineal pain
CPT/HCPCS: 99283; J3490 ×2

== ENCOUNTER 2017-07-13 21:39 | Emergency (ER) | payer MEDICAID ==
[2017-07-13 22:31] VITALS: BP 156/87
[2017-07-13 23:30] LABS: ALANINE AMINOTRANSFERASE 20 U/L (9-52); ALBUMIN 4.3 g/dL (3.5-5.0); ALKALINE PHOSPHATASE 47 U/L (38-126); ANION GAP 13 (5-19); ASPARTATE AMINO TRANSFERASE 18 U/L (14-36); BILIRUBIN,DIRECT 0.5 mg/dL (0.0-0.4); BILIRUBIN,TOTAL 0.5 mg/dL (0.2-1.3); BLOOD UREA NITROGEN 8 mg/dL (7-20); CALCIUM 9.4 mg/dL (8.4-10.2); CARBON DIOXIDE 25 mmol/L (22-30); CHLORIDE 103 mmol/L (98-107); CREATININE RESULT 0.62 mg/dL (0.52-1.25); GLUCOSE 89 mg/dL (75-110); LIPASE 38.3 U/L (23-300); POTASSIUM 3.8 mmol/L (3.6-5.0); SODIUM 140.5 mmol/L (137-145); TOTAL PROTEIN 6.8 g/dL (6.3-8.2)
[2017-07-13 23:33] LABS: ABSOLUTE BASOPHILS # (AUTO) 0.1 10^3/uL (0.0-0.2); ABSOLUTE EOSINOPHILS # (AUTO) 0.3 10^3/uL (0.0-0.6); ABSOLUTE LYMPHOCYTES (AUTO) 3.5 10^3/uL (0.5-4.7); ABSOLUTE MONOCYTES (AUTO) 0.4 10^3/uL (0.1-1.4); ABSOLUTE NEUT (AUTO) 1.7 10^3/uL (1.7-8.2); EOSINOPHILS % (AUTO) 4.8 % (0-6); HEMATOCRIT 34.6 % (36.0-47.0); HEMOGLOBIN 11.4 g/dL (12.0-15.5); HGB HCT DIFFERENCE -0.4; LYMPHOCYTES % (AUTO) 59.4 % (13-45); MEAN CORPUSCULAR HEMOGLOBIN 27.4 pg (27.0-33.4); MEAN CORPUSCULAR VOLUME 83 fl (80-97); MONOCYTES % (AUTO) 6.5 % (3-13); RED BLOOD COUNT 4.18 10^6/uL (3.72-5.28); RED CELL DISTRIBUTION WIDTH 12.9 % (11.5-14.0); SEGMENTED NEUTROPHILS % (AUTO) 28.3 % (42-78); WHITE BLOOD COUNT 5.9 10^3/uL (4.0-10.5)
[2017-07-13 23:38] LABS: APPEARANCE,URINE CLEAR; BILIRUBIN,URINE NEGATIVE (NEGATIVE); GLUCOSE, URINE NEGATIVE (NEGATIVE); KETONES,URINE NEGATIVE (NEGATIVE); LEUKOCYTE ESTERASE,URINE NEGATIVE (NEGATIVE); NITRITE,URINE NEGATIVE (NEGATIVE); PROTEIN,URINE NEGATIVE (NEGATIVE); URINE SPECIFIC GRAVITY 1.014
== END 2017-07-14 00:59 | disposition left against medical advice (07) ==
LOC: ER 21:39
DX: Z53.21 Procedure and treatment not carried out due to patient leaving prior to being seen by health care provider (principal)
CPT/HCPCS: 36415; 80053; 81001; 83690; 84703; 85025

== ENCOUNTER 2017-07-14 17:37 | Emergency (ER) | payer MEDICAID ==
[2017-07-14 17:43] VITALS: BP 151/89
[2017-07-14] MEDS ORDERED: IBUPROFEN 600 MG TABLET PO ONE (18:41)
--- NOTE | 2017-07-14 18:43 | ER Document Report ---
ED Medical Screen (RME) - General Chief Complaint: Pelvic Pain Stated Complaint: PELVIC/ABDOMINAL PAIN Time Seen by Provider: 07/14/17 18:41 Notes: Patient complains of right-sided pelvic pain for probably one. She states she recently was treated for PID and felt significantly better after finishing the antibiotics. She states she has had no intercourse since then. She states she now has the same pain however. She denies any vaginal bleeding. She states she does have some discharge. No problems with bowel movements or urination. TRAVEL OUTSIDE OF THE [place] IN LAST 30 DAYS: No - Related Data Allergies/Adverse Reactions: hydrocodone [From [place]] Allergy (Verified 07/13/17 21:44) ketorolac [From Toradol] Allergy (Verified 07/13/17 21:44) tramadol Allergy (Verified 07/13/17 21:44) diphenhydramine [From Benadryl] Adverse Reaction (Verified 07/13/17 21:44) Past Medical History - Past Medical History Cardiac Medical History: Reports: Hx Hypertension - is on labatolol took today takes bid. Has severe tooth ache Neurological Medical History: Reports: Hx Migraine Renal/ Medical History: Reports: Hx Pelvic Inflammatory Disease. Denies: Hx Peritoneal Dialysis Musculoskeltal Medical History: Reports Hx Arthritis, Reports Hx Musculoskeletal Trauma Past Surgical History: Reports: Hx Oral Surgery - wisdom teeth - Immunizations Immunizations up to date: No Hx Diphtheria, Pertussis, Tetanus Vaccination: No Physical Exam - Vital signs Vitals: Temp Pulse Resp BP Pulse Ox 99.0 F 87 16 151/89 H 100 07/14/17 17:42 07/14/17 17:42 07/14/17 17:42 07/14/17 17:42 07/14/17 17:42 Course - Vital Signs Vital signs: Temp Pulse Resp BP Pulse Ox 99.0 F 87 16 151/89 H 100 07/14/17 17:42 07/14/17 17:42 07/14/17 17:42 07/14/17 17:42 07/14/17 17:42
[2017-07-14 19:10] LABS: ABSOLUTE BASOPHILS # (AUTO) 0.1 10^3/uL (0.0-0.2); ABSOLUTE EOSINOPHILS # (AUTO) 0.2 10^3/uL (0.0-0.6); ABSOLUTE LYMPHOCYTES (AUTO) 2.8 10^3/uL (0.5-4.7); ABSOLUTE MONOCYTES (AUTO) 0.4 10^3/uL (0.1-1.4); ABSOLUTE NEUT (AUTO) 1.8 10^3/uL (1.7-8.2); BASOPHILS % (AUTO) 1.9 % (0-2); EOSINOPHILS % (AUTO) 4.2 % (0-6); HEMATOCRIT 36.3 % (36.0-47.0); HEMOGLOBIN 12.1 g/dL (12.0-15.5); LYMPHOCYTES % (AUTO) 53.1 % (13-45); MEAN CORPUSCULAR HEMOGLOBIN 27.9 pg (27.0-33.4); MEAN CORPUSCULAR HGB CONC 33.5 g/dL (32.0-36.0); MEAN CORPUSCULAR VOLUME 83 fl (80-97); MONOCYTES % (AUTO) 6.8 % (3-13); RED BLOOD COUNT 4.35 10^6/uL (3.72-5.28); RED CELL DISTRIBUTION WIDTH 13.3 % (11.5-14.0); WHITE BLOOD COUNT 5.3 10^3/uL (4.0-10.5)
[2017-07-14 19:17] LABS: APPEARANCE,URINE CLEAR; BILIRUBIN,URINE NEGATIVE (NEGATIVE); GLUCOSE, URINE NEGATIVE (NEGATIVE); KETONES,URINE NEGATIVE (NEGATIVE); LEUKOCYTE ESTERASE,URINE TRACE (NEGATIVE); NITRITE,URINE POSITIVE (NEGATIVE); PROTEIN,URINE NEGATIVE (NEGATIVE); URINE SPECIFIC GRAVITY 1.014
[2017-07-14 19:26] LABS: ALANINE AMINOTRANSFERASE 20 U/L (9-52); ALBUMIN 4.6 g/dL (3.5-5.0); ALKALINE PHOSPHATASE 49 U/L (38-126); ANION GAP 12 (5-19); ASPARTATE AMINO TRANSFERASE 14 U/L (14-36); BILIRUBIN,DIRECT 0.3 mg/dL (0.0-0.4); BILIRUBIN,TOTAL 0.4 mg/dL (0.2-1.3); BLOOD UREA NITROGEN 7 mg/dL (7-20); CALCIUM 9.2 mg/dL (8.4-10.2); CARBON DIOXIDE 26 mmol/L (22-30); CHLORIDE 104 mmol/L (98-107); GLUCOSE 78 mg/dL (75-110); POTASSIUM 4.2 mmol/L (3.6-5.0); SODIUM 142.1 mmol/L (137-145)
[2017-07-14 19:27] LABS: WBC,URINE RARE /HPF
[2017-07-14] MEDS ORDERED: OXYCODONE-ACETAMINOPHEN 5-325 MG TABLET PO ONE (21:50)
[2017-07-14] MEDS ORDERED: PROMETHAZINE HCL 25 MG TABLET PO ONE (21:50)
--- NOTE | 2017-07-14 21:51 | ER Document Report ---
ED GI/ - General Chief Complaint: Pelvic Pain Stated Complaint: PELVIC/ABDOMINAL PAIN Time Seen by Provider: 07/14/17 18:41 Notes: Patient is a 26-year-old female who comes emergency department for chief complaint of sharp right pelvic pain, worsening over the past week, she does have a whitish discharge, she denies vaginal bleeding, she denies trauma. She denies fever, nausea or vomiting. She states that she did have PID back in April, was treated for this, she states that she has not had sexual intercourse since being treated. Past medical history of hypertension, medicated, denies any surgeries or medical history otherwise. TRAVEL OUTSIDE OF THE [place] IN LAST 30 DAYS: No - Related Data Allergies/Adverse Reactions: hydrocodone [From [place]] Allergy (Verified 07/13/17 21:44) ketorolac [From Toradol] Allergy (Verified 07/13/17 21:44) tramadol Allergy (Verified 07/13/17 21:44) diphenhydramine [From Benadryl] Adverse Reaction (Verified 07/13/17 21:44) Past Medical History - General Information source: Patient - Social History Smoking Status: Never Smoker Frequency of alcohol use: None Drug Abuse: None Lives with: Family Family History: CAD, CVA, DM, Hyperlipidemia, Hypertension, Malignancy, Thyroid Disfunction Patient has suicidal ideation: No Patient has homicidal ideation: No - Past Medical History Cardiac Medical History: Reports: Hx Hypertension - is on labatolol took today takes bid. Has severe tooth ache Neurological Medical History: Reports: Hx Migraine Renal/ Medical History: Reports: Hx Pelvic Inflammatory Disease. Denies: Hx Peritoneal Dialysis Musculoskeltal Medical History: Reports Hx Arthritis, Reports Hx Musculoskeletal Trauma Past Surgical History: Reports: Hx Oral Surgery - wisdom teeth - Immunizations Immunizations up to date: No Hx Diphtheria, Pertussis, Tetanus Vaccination: No Review of Systems - Review of Systems Constitutional: No symptoms reported EENT: No symptoms reported Cardiovascular: No symptoms reported Respiratory: No symptoms reported Gastrointestinal: See HPI Genitourinary: See HPI Female Genitourinary: See HPI Musculoskeletal: No symptoms reported Skin: No symptoms reported Hematologic/Lymphatic: No symptoms reported Neurological/Psychological: No symptoms reported Physical Exam - Vital signs Vitals: Temp Pulse Resp BP Pulse Ox 99.0 F 87 16 151/89 H 100 07/14/17 17:42 07/14/17 17:42 07/14/17 17:42 07/14/17 17:42 07/14/17 17:42 Interpretation: Normal - General General appearance: Appears well, Alert In distress: None - HEENT Head: Normocephalic, Atraumatic Eyes: Normal Pupils: PERRL - Respiratory Respiratory status: No respiratory distress Chest status: Nontender Breath sounds: Normal Chest palpation: Normal - Cardiovascular Rhythm: Regular Heart sounds: Normal auscultation Murmur: No - Abdominal Inspection: Normal Distension: No distension Bowel sounds: Normal Tenderness: Tender - There is generalized pelvic tenderness on both sides, no guarding, unremarkable abdomen otherwise Organomegaly: No organomegaly - Genitourinary External exam: Normal Speculum exam: Cervix closed, Vaginal discharge - Heavy whitish vaginal discharge Vaginal bleeding: None Bimanuel exam: Other - Mild questionable cervical motion tenderness, no overt cervical motion tenderness - Back Back: Normal, Nontender - Extremities General upper extremity: Normal inspection, Nontender, Normal color, Normal ROM , Normal temperature General lower extremity: Normal inspection, Nontender, Normal color, Normal ROM , Normal temperature, Normal weight bearing. No: April's sign - Neurological Neuro grossly intact: Yes Cognition: Normal Orientation: AAOx4 [place] Coma Scale Eye Opening: Spontaneous [place] Coma Scale Verbal: Oriented Far[place]h Coma Scale Motor: Obeys Commands Farideh Coma Scale Total: 15 Speech: Normal Motor strength normal: LUE, RUE, LLE, RLE Sensory: Normal - Psychological Associated symptoms: Normal affect, Normal mood - Skin Skin Temperature: Warm Skin Moisture: Dry Skin Color: Normal Course - Re-evaluation Re-evalutation: Patient has generalized lower pelvic tenderness on my exam. No fever, unremarkable vital signs. She is well-appearing and does not appear to be in distress. CBC, chemistry, and general workup unremarkable except for nitrates in the urine and positive chlamydia. Ultrasound is unremarkable. I doubt that patient has had chlamydia for the past 3 months with treatment failure from doxycycline. Asked if she took the doxycycline and she states she did, explained to her that it appears that she was sexually active again and contracted PID again. She did not answer me with a response to this. Recommended protected sex only after waiting period, partner treatment, discussed treatment instructions, patient given azithromycin here, Rocephin, will treat with Keflex because of nitrates in the urine, discussed primary care follow-up and return precautions. Patient states understanding and agreement. - Vital Signs Vital signs: Temp Pulse Resp BP Pulse Ox 99.0 F 87 16 151/89 H 100 07/14/17 17:42 07/14/17 17:42 07/14/17 17:42 07/14/17 17:42 07/14/17 17:42 - Laboratory Result Diagrams: 07/14/17 18:42 07/14/17 18:42 Laboratory results interpreted by me: 07/14/17 07/14/17 07/14/17 18:42 18:42 22:05 Seg Neutrophils % 34.0 L Lymphocytes % 53.1 H Urine Nitrite POSITIVE H Urine Urobilinogen 4.0 H Ur Leukocyte Esterase TRACE H Chlamydia DNA (PCR) DETECTED H Discharge - Discharge Clinical Impression: PID (acute pelvic inflammatory disease), Vaginal discharge, Pelvic pain Condition: Stable Disposition: HOME, SELF-CARE Additional Instructions: Your workup shows pelvic inflammatory disease, you have chlamydia, you have been treated for this, do not have intercourse for the next 7 days, your partner also needs to be treated. Do not have unprotected intercourse. Your workup also indicates a urinary tract infection, take the Keflex as prescribed for the next 3 days. Return the emergency department for any concerning or worsening symptoms including worsening pain, fever, vomiting, or any other concerning symptoms. Prescriptions: Cephalexin Monohydrate [Keflex 500 mg Capsule] 500 mg PO BID #6 capsule Forms: Return to Work Referrals: GIUSEPPE GOEL MD [Primary Care Provider] - Follow up as needed
[2017-07-15] MEDS ORDERED: AZITHROMYCIN 250 MG TABLET PO ONE (01:25)
[2017-07-15] MEDS ORDERED: CEFTRIAXONE INJ 250 MG VIAL IM ONE (01:25)
--- NOTE | 2017-07-15 02:18 | RADIOLOGY REPORT (SQ) ---
EXAM DESCRIPTION: U/S NON OB PEL TV W/DOPPLER CLINICAL HISTORY: 26 years, Female, sharp right pelvic pain COMPARISON: None. TECHNIQUE: Transvaginal. LIMITATIONS: None. FINDINGS: 7 cm uterus, 1.3 cm thick endometrial stripe, 3.0 cm right ovary, 4.3 cm left ovary with 2.9 cm cystic component, and small free fluid adjacent to left ovary appear otherwise of normal size, shape, echogenicity, and vascularity. IMPRESSION: Normal pelvic sonogram. 2011 [employer]- All Rights Reserved
== END 2017-07-15 02:37 | disposition home or self-care (01) ==
LOC: ER 17:37
DX: N73.0 Acute parametritis and pelvic cellulitis (principal); R10.2 Pelvic and perineal pain; N89.8 Other specified noninflammatory disorders of vagina; Z88.6 Allergy status to analgesic agent
CPT/HCPCS: 99284; 96372; 36415; 87210; 85025; 80053; 81001; 87491; 87591; 76830; 93976; Q0144; J3490 ×2; J0696

== ENCOUNTER 2018-01-14 13:04 | Emergency (ER) | payer MEDICAID ==
--- NOTE | 2018-01-14 13:40 | ER Document Report ---
ED Medical Screen (RME) - General Mode of Arrival: Ambulatory Information source: Patient TRAVEL OUTSIDE OF THE [place] IN LAST 30 DAYS: No <MARY CHANDLER - Last Filed: 01/14/18 15:53> <NIGEL DANIELS - Last Filed: 01/14/18 21:43> - General Chief Complaint: Abdominal Pain Stated Complaint: ABDOMINAL PAIN Time Seen by Provider: 01/14/18 13:27 Notes: Patient is a 27-year-old female who presents to the emergency department today with complaints of right-sided pelvic pain. Patient has a history of ovarian cysts along with PID. Patient states she is having vaginal discharge currently. Patient denies any fevers, vomiting, diarrhea, or nausea. I have greeted and performed a rapid initial assessment of this patient. A comprehensive ED assessment and evaluation of the patient, analysis of test results, and completion of the medical decision making process will be conducted by additional ED providers. Review of systems: Constitutional: Denies Fevers EENT: No symptoms reported Cardiovascular: No symptoms reported Respiratory: No symptoms reported Gastrointestinal: Right sided pelvic pain. denies vomiting, diarrhea, or nausea. Genitourinary: No symptoms reported Female Genitourinary: Vaginal Discharge Musculoskeletal: No symptoms reported Skin: No symptoms reported Hematologic/Lymphatic: No symptoms reported Neurological/Psychological: No symptoms reported Yes All other systems reviewed and negative PHYSICAL EXAM GENERAL: Alert, interacts well. No acute distress. HEAD: Normocephalic, atraumatic. EYES: Pupils equal, round, and reactive to light. Extraocular movements intact. ENT: Oral mucosa moist, tongue midline. NECK: Full range of motion. Supple. Trachea midline. LUNGS: Clear to auscultation bilaterally, no wheezes, rales, or rhonchi. No respiratory distress. HEART: Regular rate and rhythm. No murmurs, gallops, or rubs. ABDOMEN: Soft, non-tender. Non-distended. Bowel sounds present in all 4 quadrants. No guarding, rigidity, or rebound. EXTREMITIES: Moves all 4 extremities spontaneously. No edema, radial and dorsalis pedis pulses 2/4 bilaterally. No cyanosis. NEUROLOGICAL: Alert and oriented x3. Normal speech. PSYCH: Normal affect, normal mood. SKIN: Warm, dry, normal turgor. No rashes or lesions noted. (MARY CHANDLER) - Related Data Allergies/Adverse Reactions: hydrocodone [From [place]] Allergy (Verified 01/14/18 13:27) ketorolac [From Toradol] Allergy (Verified 01/14/18 13:27) tramadol Allergy (Verified 01/14/18 13:27) diphenhydramine [From Benadryl] Adverse Reaction (Verified 01/14/18 13:27) Past Medical History - Social History Chew tobacco use (# tins/day): No Frequency of alcohol use: None Drug Abuse: None - Past Medical History Cardiac Medical History: Reports: Hx Hypertension - is on labatolol took today takes bid. Has severe tooth ache Neurological Medical History: Reports: Hx Migraine Renal/ Medical History: Reports: Hx Pelvic Inflammatory Disease. Denies: Hx Peritoneal Dialysis Musculoskeltal Medical History: Reports Hx Arthritis, Reports Hx Musculoskeletal Trauma Past Surgical History: Reports: Hx Oral Surgery - wisdom teeth - Immunizations Immunizations up to date: No Hx Diphtheria, Pertussis, Tetanus Vaccination: No <MARY CHANDLER - Last Filed: 01/14/18 15:53> - Vital signs Vitals: Temp Pulse Resp BP Pulse Ox 99.2 F 79 20 144/88 H 100 01/14/18 13:10 01/14/18 13:10 01/14/18 13:10 01/14/18 13:10 01/14/18 13:10 Course - Laboratory Result Diagrams: 01/14/18 13:42 01/14/18 13:42 <MARY CHANDLER - Last Filed: 01/14/18 15:53> - Laboratory Result Diagrams: 01/14/18 13:42 01/14/18 13:42 <NIGEL DANIELS - Last Filed: 01/14/18 21:43> - Vital Signs Vital signs: Temp Pulse Resp BP Pulse Ox 98.6 F 75 18 157/91 H 99 01/14/18 16:37 01/14/18 16:37 01/14/18 16:37 01/14/18 16:37 01/14/18 16:37 - Laboratory Laboratory results interpreted by me: 01/14/18 13:42 Urine Protein 30 H Urine Ketones TRACE H Urine Blood SMALL H Urine Bilirubin MODERATE H Urine Urobilinogen 4.0 H Ur Leukocyte Esterase SMALL H Doctor's Discharge <MARY CHANDLER - Last Filed: 01/14/18 15:53> <NIGEL DANIELS - Last Filed: 01/14/18 21:43> - Discharge Clinical Impression: RLQ abdominal pain, small left ovarian cyst, right pelvic pain, Vaginal discharge Condition: Good Disposition: HOME, SELF-CARE Instructions: Abdominal Pain ([facility]), Pelvic Pain ([facility]) Additional Instructions: See Dr. Goel for follow-up I have given you copies of everything that we did today. Another chest x-ray in another month for the trace pleural effusions Return to the emergency room if symptoms get worse no alcohol with the flagyl see dr. antoine for follow up on the pelvic cruz and the discharge Prescriptions: Metronidazole [Flagyl 500 mg Tablet] 500 mg PO BID #14 tablet Oxycodone HCl/Acetaminophen [Percocet 5-325 mg Tablet] 1 tab PO ASDIR PRN #10 tablet PRN Reason: Forms: Return to Work Referrals: ESEQUIEL ANTOINE MD [ACTIVE STAFF] - Follow up as needed GIUSEPPE GOEL MD [Primary Care Provider] - Follow up tomorrow Scribe Documentation - Scribe Written by Pepe:: Pepe Orozco, 01/14/2018 1557 acting as scribe for :: Lynda <MARY CHANDLER - Last Filed: 01/14/18 15:53>
[2018-01-14 14:15] LABS: ABSOLUTE BASOPHILS # (AUTO) 0.1 10^3/uL (0.0-0.2); ABSOLUTE EOSINOPHILS # (AUTO) 0.2 10^3/uL (0.0-0.6); ABSOLUTE LYMPHOCYTES (AUTO) 2.5 10^3/uL (0.5-4.7); ABSOLUTE MONOCYTES (AUTO) 0.5 10^3/uL (0.1-1.4); BASOPHILS % (AUTO) 0.8 % (0-2); EOSINOPHILS % (AUTO) 3.3 % (0-6); HEMOGLOBIN 12.3 g/dL (12.0-15.5); LYMPHOCYTES % (AUTO) 40.4 % (13-45); MEAN CORPUSCULAR HEMOGLOBIN 27.9 pg (27.0-33.4); MEAN CORPUSCULAR HGB CONC 33.2 g/dL (32.0-36.0); MEAN CORPUSCULAR VOLUME 84 fl (80-97); MONOCYTES % (AUTO) 7.7 % (3-13); PLATELET COUNT 260 10^3/uL (150-450); RED CELL DISTRIBUTION WIDTH 13.4 % (11.5-14.0); SEGMENTED NEUTROPHILS % (AUTO) 47.8 % (42-78); TOTAL CELLS COUNTED % (AUTO) 100 %; WHITE BLOOD COUNT 6.2 10^3/uL (4.0-10.5)
[2018-01-14 14:20] LABS: APPEARANCE,URINE SLIGHTLY-CLOUDY; BILIRUBIN,URINE MODERATE (NEGATIVE); COLOR,URINE YELLOW; GLUCOSE, URINE NEGATIVE (NEGATIVE); KETONES,URINE TRACE mg/dL (NEGATIVE); LEUKOCYTE ESTERASE,URINE SMALL (NEGATIVE); NITRITE,URINE NEGATIVE (NEGATIVE); PROTEIN,URINE 30 mg/dL (NEGATIVE)
[2018-01-14 14:31] LABS: ALANINE AMINOTRANSFERASE 29 U/L (9-52); ALBUMIN 4.4 g/dL (3.5-5.0); ALKALINE PHOSPHATASE 49 U/L (38-126); ANION GAP 11 (5-19); ASPARTATE AMINO TRANSFERASE 21 U/L (14-36); BILIRUBIN,DIRECT 0.3 mg/dL (0.0-0.4); BILIRUBIN,TOTAL 0.3 mg/dL (0.2-1.3); BLOOD UREA NITROGEN 8 mg/dL (7-20); CALCIUM 9.7 mg/dL (8.4-10.2); CARBON DIOXIDE 28 mmol/L (22-30); CHLORIDE 105 mmol/L (98-107); GLUCOSE 79 mg/dL (75-110); SODIUM 143.9 mmol/L (137-145); TOTAL PROTEIN 7.1 g/dL (6.3-8.2)
--- NOTE | 2018-01-14 14:59 | ER Document Report ---
ED GI/ - General Chief Complaint: Abdominal Pain Stated Complaint: ABDOMINAL PAIN Time Seen by Provider: 01/14/18 13:27 Mode of Arrival: Ambulatory Information source: Patient Notes: 27-year-old female complaining of horrible pelvic right-sided pain which is dull for 2 weeks. She has had some spotting with a bad smell to her discharge. The pain is similar to when she was diagnosed with an ovarian cyst in the past. She has not had intercourse since she was treated for PID 6 months ago. She had trichomonas found 3 months ago. . No fever or chills. No nausea vomiting or diarrhea. TRAVEL OUTSIDE OF THE [place] IN LAST 30 DAYS: No - Related Data Allergies/Adverse Reactions: hydrocodone [From [place]] Allergy (Verified 01/14/18 13:27) ketorolac [From Toradol] Allergy (Verified 01/14/18 13:27) tramadol Allergy (Verified 01/14/18 13:27) diphenhydramine [From Benadryl] Adverse Reaction (Verified 01/14/18 13:27) Past Medical History - General Information source: Patient - Social History Smoking Status: Never Smoker Chew tobacco use (# tins/day): No Frequency of alcohol use: None Drug Abuse: None Lives with: Family Family History: CAD, CVA, DM, Hyperlipidemia, Hypertension, Malignancy, Thyroid Disfunction Patient has suicidal ideation: No Patient has homicidal ideation: No - Past Medical History Cardiac Medical History: Reports: Hx Hypertension - is on labatolol took today takes bid. Has severe tooth ache Neurological Medical History: Reports: Hx Migraine Renal/ Medical History: Reports: Hx Pelvic Inflammatory Disease. Denies: Hx Peritoneal Dialysis Musculoskeltal Medical History: Reports Hx Arthritis, Reports Hx Musculoskeletal Trauma Past Surgical History: Reports: Hx Oral Surgery - wisdom teeth - Immunizations Immunizations up to date: No Hx Diphtheria, Pertussis, Tetanus Vaccination: No Review of Systems - Review of Systems Constitutional: No symptoms reported EENT: No symptoms reported Cardiovascular: No symptoms reported Respiratory: No symptoms reported Gastrointestinal: No symptoms reported Genitourinary: No symptoms reported Female Genitourinary: See HPI Musculoskeletal: No symptoms reported Skin: No symptoms reported Hematologic/Lymphatic: No symptoms reported Neurological/Psychological: No symptoms reported Physical Exam - Vital signs Vitals: Temp Pulse Resp BP Pulse Ox 99.2 F 79 20 144/88 H 100 01/14/18 13:10 01/14/18 13:10 01/14/18 13:10 01/14/18 13:10 01/14/18 13:10 Interpretation: Normal - General General appearance: Appears well, Alert - HEENT Head: Normocephalic, Atraumatic Eyes: Normal Conjunctiva: Normal Pupils: PERRL Mucous membranes: Normal Neck: Supple. No: Lymphadenopathy - Respiratory Respiratory status: No respiratory distress Chest status: Nontender Breath sounds: Normal Chest palpation: Normal - Cardiovascular Rhythm: Regular Heart sounds: Normal auscultation Murmur: No - Abdominal Inspection: Normal Distension: No distension Bowel sounds: Normal Tenderness: Tender - right pelvis Organomegaly: No organomegaly - Genitourinary External exam: Normal - Back Back: Normal, Nontender. No: CVA tenderness - Extremities General upper extremity: Normal inspection, Nontender, Normal color, Normal ROM , Normal temperature General lower extremity: Normal inspection, Nontender, Normal color, Normal ROM , Normal temperature, Normal weight bearing. No: April's sign - Neurological Neuro grossly intact: Yes Cognition: Normal Orientation: AAOx4 [place] Coma Scale Eye Opening: Spontaneous [place] Coma Scale Verbal: Oriented Farideh Coma Scale Motor: Obeys Commands Farideh Coma Scale Total: 15 Speech: Normal Motor strength normal: LUE, RUE, LLE, RLE Sensory: Normal - Psychological Associated symptoms: Normal affect, Normal mood - Skin Skin Temperature: Warm Skin Moisture: Dry Skin Color: Normal Skin irregularity: negative: Rash Course - Re-evaluation Re-evalutation: 01/14/18 17:46 CBC and chemistry are normal, trace bacteria in the urine urine culture sent, Claudette test is negative, wet mount negative for Trichomonas or BV, gonorrhea and chlamydia negative. She still complains of right pelvic pain. The ultrasound showed a few small left ovarian cyst, sent her for IV contrast CT to rule out appendicitis the appendix is normal there is incidental finding of a 2.7 cm simple cyst of the right kidney and trace bilateral pleural effusions unknown significance per radiologist. She again is asking sure she gets a pain medication prescription. She did not want anymore IV fluid even though the specific gravity of the urine was 1.030 because it bothered the arm 01/14/18 01/14/18 18:20 Patient wants to be treated with Flagyl we discussed the CT report the ultrasound and the lab work. She will return if it worsens - Vital Signs Vital signs: Temp Pulse Resp BP Pulse Ox 98.6 F 75 18 157/91 H 99 01/14/18 16:37 01/14/18 16:37 01/14/18 16:37 01/14/18 16:37 01/14/18 16:37 - Laboratory Result Diagrams: 01/14/18 13:42 01/14/18 13:42 Laboratory results interpreted by me: 01/14/18 13:42 Urine Protein 30 H Urine Ketones TRACE H Urine Blood SMALL H Urine Bilirubin MODERATE H Urine Urobilinogen 4.0 H Ur Leukocyte Esterase SMALL H Discharge - Discharge Clinical Impression: RLQ abdominal pain, small left ovarian cyst, right pelvic pain, Vaginal discharge Condition: Good Disposition: HOME, SELF-CARE Instructions: Abdominal Pain ([facility]), Pelvic Pain ([facility]) Additional Instructions: See Dr. Goel for follow-up I have given you copies of everything that we did today. Another chest x-ray in another month for the trace pleural effusions Return to the emergency room if symptoms get worse no alcohol with the flagyl see dr. antoine for follow up on the pelvic cruz and the discharge Prescriptions: Metronidazole [Flagyl 500 mg Tablet] 500 mg PO BID #14 tablet Oxycodone HCl/Acetaminophen [Percocet 5-325 mg Tablet] 1 tab PO ASDIR PRN #10 tablet PRN Reason: Forms: Return to Work Referrals: GIUSEPPE GOEL MD [Primary Care Provider] - Follow up tomorrow ESEQUIEL ANTOINE MD [ACTIVE STAFF] - Follow up as needed
[2018-01-14 15:38] LABS: CHLAM PCR NOT DETECTED (NOT DETECT); GON PCR NOT DETECTED (NOT DETECT)
[2018-01-14 16:12] LABS: T.VAGINALIS (WET MOUNT) NO TRICHOMONAS SEEN; YEAST (WET MOUNT) NO YEAST SEEN
[2018-01-14 16:13] LABS: BACTERIA (WET MOUNT) 4+ BACTERIA SEEN; RBCS (WET MOUNT) RARE RBCS SEEN; WBCS (WET MOUNT) 3+ WBCS SEEN
--- NOTE | 2018-01-14 16:14 | RADIOLOGY REPORT (SQ) ---
EXAM DESCRIPTION: U/S NON OB PEL TV W/DOPPLER COMPLETED DATE/TIME: 01/14/2018 4:04 pm REASON FOR STUDY: RLQ pain, h/o cysts, r/o torsion COMPARISON: July 2017 TECHNIQUE: Dynamic and static grayscale images acquired of the pelvis via transvaginal approach and recorded on PACS. Additional selected color Doppler and spectral images recorded. LIMITATIONS: None. FINDINGS: UTERUS: Contour normal. No mass. ENDOMETRIAL STRIPE: No focal or generalized thickening. No masses. CERVIX: No nabothian cysts. RIGHT OVARY AND DOPPLER: Normal size. No worrisome masses. Normal arterial vascular flow without evid ence for torsion. LEFT OVARY AND DOPPLER: Normal size. Small ovarian cyst is identified measuring 2.0 x 1.8 x 1.3 cm. Normal arterial vascular flow without evidence for torsion. FREE FLUID: Small amount of fluid is identified in the posterior cul-de-sac. OTHER: No other significant finding. MEASUREMENTS: UTERUS: 8.5 x 4.7 x 3.0 cm ENDOMETRIAL STRIPE: 1 mm RIGHT OVARY: 1.9 x 2.1 x 2.0 cm LEFT OVARY: 2.7 x 3.4 x 2.3 cm IMPRESSION: Small left ovarian cysts. Small amount of free fluid is identified in the posterior cul -de-sac. No other significant pelvic abnormalities were identified. Other findings as noted above TECHNICAL DOCUMENTATION: JOB ID: [id number] [employer]- All Rights Reserved Rev-12/25 Reading location - IP/workstation name: [email or web address]
[2018-01-14] MEDS ORDERED: OXYCODONE-ACETAMINOPHEN 5-325 MG TABLET PO ONE (16:20)
[2018-01-14] MEDS ORDERED: NORMAL SALINE 1000 ML 1,000 ML IV ONE (16:36)
--- NOTE | 2018-01-14 17:43 | RADIOLOGY REPORT (SQ) ---
EXAM DESCRIPTION: CT ABD/PELVIS WITH IV ONLY COMPLETED DATE/TIME: 01/14/2018 5:30 pm REASON FOR STUDY: rlq abd pain COMPARISON: None. TECHNIQUE: CT scan of the abdomen and pelvis performed using helical scanning technique with dynamic intravenous contrast injection. No oral contrast. Images reviewed with lung, soft tissue, and bone windows. Reconstructed coronal and sagittal MPR images reviewed. Delayed images for evaluation of the urinary system also acquired. All images stored on PACS. All CT scanners at this facility use dose modulation, iterative reconstruction, and/or weight based d osing when appropriate to reduce radiation dose to as low as reasonably achievable (ALARA). [facility]: Dose Right [facility]: CareDose [facility]: Dose Right [facility]: Teradose 4D [facility]: [employer] CONTRAST TYPE AND DOSE: contrast/concentration: Isovue 370.00 mg/ml; Total Contrast Delivered: 89.0 ml; Total Saline Delivered: 35.0 ml RENAL FUNCTION: None required. The patient is less than 50 years old. RADIATION DOSE: CT Rad equipment meets quality standard of care and radiation dose reduction techniq ues were employed. CTDIvol: 10.6 - 14.8 mGy. DLP: 1332 mGy-cm.. LIMITATIONS: None. FINDINGS: LOWER CHEST: Trace bilateral pleural effusions. LIVER: Normal size. No masses. No dilated ducts. SPLEEN: Normal size. No focal lesions. PANCREAS: No masses. No significant calcifications. No adjacent inflammation or peripancreatic fluid collections. Pancreatic duct not dilated. GALLBLADDER: No identified stones by CT criteria. No inflammatory changes to suggest cholecystitis. ADRENAL GLANDS: No significant masses or asymmetry. RIGHT KIDNEY AND URETER: 2.7 cm simple cyst with additional tiny low attenuating lesions too small to adequately characterize but presumably representing additional cysts. No solid masses. No signifi cant calcifications. No hydronephrosis or hydroureter. LEFT KIDNEY AND URETER: Scattered tiny low attenuating lesions too small to adequately characterize b ut statistically represent benign cysts No solid masses. No significant calcifications. No hydron ephrosis or hydroureter. AORTA AND VESSELS: No aneurysm. No dissection. Renal arteries, SMA, celiac without stenosis. RETROPERITONEUM: No retroperitoneal adenopathy, hemorrhage or masses. BOWEL AND PERITONEAL CAVITY: No masses or inflammatory changes. No free fluid or peritoneal masses. APPENDIX: Normal. PELVIS: No mass. No free fluid. Normal bladder. ABDOMINAL WALL: No masses. No hernias. BONES: No significant or acute findings. OTHER: No other significant finding. IMPRESSION: NO SIGNIFICANT OR ACUTE FINDING IN THE ABDOMEN OR PELVIS ON CT SCAN WITH IV CONTRAST. TRACE BILATERAL PLEURAL EFFUSIONS OF UNCERTAIN CLINICAL SIGNIFICANCE. TECHNICAL DOCUMENTATION: JOB ID: [id number] Quality ID # [id number]: Final reports with documentation of one or more dose reduction techniques (e.g., Au tomated exposure control, adjustment of the mA and/or kV according to patient size, use of iterative reconstruction technique) 2010 [employer]- All Rights Reserved Reading location - IP/workstation name: [email or web address]
[2018-01-14 18:25] VITALS: BP 157/91
== END 2018-01-14 18:26 | disposition home or self-care (01) ==
LOC: ER 13:04
DX: N83.202 Unspecified ovarian cyst, left side (principal); N89.8 Other specified noninflammatory disorders of vagina; R10.31 Right lower quadrant pain; R10.2 Pelvic and perineal pain; J90 Pleural effusion, not elsewhere classified; N28.1 Cyst of kidney, acquired; I10 Essential (primary) hypertension; Z79.899 Other long term (current) drug therapy
CPT/HCPCS: 99284; 96360; 36415; 87210; 84703; 85025; 80053; 81001; 87491; 87591; 76830; 93976; 74177; J7030

== ENCOUNTER 2018-01-15 16:54 | Emergency (ER) | payer MEDICAID ==
[2018-01-15] MEDS ORDERED: ACETAMINOPHEN 325 MG TABLET PO ONE (17:46)
--- NOTE | 2018-01-15 17:49 | ER Document Report ---
ED General - General Chief Complaint: Pelvic Pain Stated Complaint: PELVIC PAIN Time Seen by Provider: 01/15/18 17:14 Mode of Arrival: Ambulatory Information source: Patient Notes: This 27-year-old presents to emergency department with complaints of horrible pelvic pain and pressure feeling in chest. She reports the pelvic pain for 2 weeks. Denies fever nausea vomiting diarrhea. No complaints of vaginal discharge today. Reports some nausea. Patient also reports the chest pressure started today she cannot lay down flat. Patient was evaluated in the emergency department yesterday with a full workup to include CT of the abdomen and transvaginal ultrasound with labs. She was provided with a Percocet prescription for the pain. She took her last percocet a few hours ago. She was instructed to follow-up with a primary care provider and [facility]. Patient reports she was unable to get with her primary area care provider and returned because of pain and now chest pressure. Patient speaking in complete sentences while laying flat, no distress. TRAVEL OUTSIDE OF THE [place] IN LAST 30 DAYS: No - HPI Onset: Other Onset/Duration: Persistent, Worse Quality of pain: Pressure Severity: Severe Pain Level: 5 Associated symptoms: Nausea Exacerbated by: Denies Similar symptoms previously: Yes Recently seen / treated by doctor: Yes - Related Data Allergies/Adverse Reactions: hydrocodone [From [place]] Allergy (Verified 01/14/18 13:27) ketorolac [From Toradol] Allergy (Verified 01/14/18 13:27) tramadol Allergy (Verified 01/14/18 13:27) diphenhydramine [From Benadryl] Adverse Reaction (Verified 01/14/18 13:27) Past Medical History - General Information source: Patient - Social History Smoking Status: Former Smoker Cigarette use (# per day): No Chew tobacco use (# tins/day): No Frequency of alcohol use: None Drug Abuse: None Family History: CAD, CVA, DM, Hyperlipidemia, Hypertension, Malignancy, Thyroid Disfunction Patient has suicidal ideation: No Patient has homicidal ideation: No - Past Medical History Cardiac Medical History: Reports: Hx Hypertension - is on labatolol took today takes bid. Has severe tooth ache Neurological Medical History: Reports: Hx Migraine Renal/ Medical History: Reports: Hx Pelvic Inflammatory Disease. Denies: Hx Peritoneal Dialysis Musculoskeltal Medical History: Reports Hx Arthritis, Reports Hx Musculoskeletal Trauma Past Surgical History: Reports: Hx Oral Surgery - wisdom teeth - Immunizations Immunizations up to date: No Hx Diphtheria, Pertussis, Tetanus Vaccination: No Review of Systems - Review of Systems Notes: Review HPI for review of systems., All other systems negative Physical Exam - Vital signs Vitals: Temp Pulse Resp BP Pulse Ox 98.8 F 76 14 171/97 H 100 01/15/18 17:02 01/15/18 17:02 01/15/18 17:02 01/15/18 17:02 01/15/18 17:02 - Notes Notes: PHYSICAL EXAMINATION: GENERAL: Well-appearing and in no acute distress HEAD: Atraumatic, normocephalic. EYES: Pupils equal round, extraocular movements intact, sclera anicteric, conjunctiva are normal. ENT: nares patent. Moist mucous membranes. good airway, clear voice, no SOB noted NECK: Normal range of motion, supple without lymphadenopathy LUNGS: CTAB and equal. No wheezes rales or rhonchi. HEART: Regular rate and rhythm without murmurs ABDOMEN: Soft, c/o pain, tenderness with palpation. No guarding, no rebound EXTREMITIES: Normal range of motion, no pitting edema. No cyanosis. NEUROLOGICAL: Cranial nerves grossly intact. Normal sensory/motor exams. PSYCH: Normal mood, normal affect. SKIN: Warm, Dry, normal turgor, no rashes or lesions noted Course - Re-evaluation Re-evalutation: 01/15/18 17:45 Review of the [place] controlled substance reporting system notes that patient has received approximately 175 tabs of Percocet in the past year. Will do labs provide patient with Tylenol for full evaluation. No narcotics will be offered at this time. 01/15/18 17:[address] nunez regarding patient. CC and plan of care reviewed. 01/15/18 18:[address] negative. Patient was instructed on results. Instructed to continue Flagyl and follow-up with her primary care provider on Thursday. She verbalized understanding. Patient speaking in clear sentences no distress. - Vital Signs Vital signs: Temp Pulse Resp BP Pulse Ox 98.8 F 76 14 171/97 H 100 01/15/18 17:02 01/15/18 17:02 01/15/18 17:02 01/15/18 17:02 01/15/18 17:02 - Laboratory Result Diagrams: 01/15/18 17:42 01/15/18 17:42 Laboratory results interpreted by me: 01/15/18 01/15/18 17:42 17:42 Hct 35.9 L Potassium 3.5 L - Diagnostic Test Radiology reviewed: Image reviewed, Reports reviewed - EXAM DESCRIPTION: CT CHEST WITHOUT COMPLETED DATE/TIME: 01/15/2018 5:55 pm REASON FOR STUDY: chest pressure COMPARISON: Chest x-ray 10/29/2015 TECHNIQUE: CT scan performed of the chest without intravenous contrast. Images reviewed with lung , soft tissue and bone windows. Reconstructed coronal and sagittal MPR images reviewed. All images stored on PACS. All CT scanners at this facility use dose modulation, iterative reconstruction, and/or weight based dosing when appropriate to reduce radiation dose to as low as reasonably achievable (ALARA). [facility]: Dose Right [facility]: CareDose [facility]: Dose Right [facility]: Teradose 4D [facility]: [employer] RADIATION DOSE: mGy. LIMITATIONS: No technical limitations. FINDINGS: LUNGS AND PLEURA: No masses, infiltrates, pneumothorax. No pleural effusions, calcifications. HILAR AND MEDIASTINAL STRUCTURES: No identified masses or abnormal nodes. No obvious aneurysm. HEART AND VASCULAR STRUCTURES: No aneurysm. No pericardial effusion. UPPER ABDOMEN: No significant findings. Limited exam. THYROID AND OTHER SOFT TISSUES: No masses. No adenopathy. BONES : No significant finding. HARDWARE: None in the chest. OTHER: No other significant findings. IMPRESSION: NO SIGNIFICANT FINDING ON NON-CONTRASTED CHEST CT. Discharge - Discharge Clinical Impression: Pelvic pain, Chest pressure Condition: Stable Disposition: HOME, SELF-CARE Instructions: Pelvic Pain ([facility]) Additional Instructions: *You have been evaluated for pelvic pain and chest pressure *Take your antibiotics as prescribed, tylenol for pain as indicated *Follow up with a primary care provider Thursday *Return to ED for worsening condition, changes, needs *Return to ED if not better in 24 hours Monitor your blood pressure. Your blood pressure was elevated today. This may be because you were anxious, in pain or because you need medication. It is important to follow up with your primary care provider for full evaluation. Referrals: GIUSEPPE GOEL MD [Primary Care Provider] - 01/18/18
[2018-01-15 18:00] LABS: ABSOLUTE BASOPHILS # (AUTO) 0.1 10^3/uL (0.0-0.2); ABSOLUTE EOSINOPHILS # (AUTO) 0.1 10^3/uL (0.0-0.6); ABSOLUTE LYMPHOCYTES (AUTO) 2.3 10^3/uL (0.5-4.7); ABSOLUTE MONOCYTES (AUTO) 0.5 10^3/uL (0.1-1.4); ABSOLUTE NEUT (AUTO) 3.3 10^3/uL (1.7-8.2); BASOPHILS % (AUTO) 0.9 % (0-2); EOSINOPHILS % (AUTO) 1.9 % (0-6); HEMATOCRIT 35.9 % (36.0-47.0); HEMOGLOBIN 12.3 g/dL (12.0-15.5); LYMPHOCYTES % (AUTO) 36.4 % (13-45); MEAN CORPUSCULAR HEMOGLOBIN 28.8 pg (27.0-33.4); MEAN CORPUSCULAR HGB CONC 34.3 g/dL (32.0-36.0); MEAN CORPUSCULAR VOLUME 84 fl (80-97); MONOCYTES % (AUTO) 7.6 % (3-13); PLATELET COUNT 255 10^3/uL (150-450); RED BLOOD COUNT 4.28 10^6/uL (3.72-5.28); RED CELL DISTRIBUTION WIDTH 13.7 % (11.5-14.0); SEGMENTED NEUTROPHILS % (AUTO) 53.2 % (42-78); TOTAL CELLS COUNTED % (AUTO) 100 %; WHITE BLOOD COUNT 6.3 10^3/uL (4.0-10.5)
--- NOTE | 2018-01-15 18:13 | RADIOLOGY REPORT (SQ) ---
EXAM DESCRIPTION: CT CHEST WITHOUT COMPLETED DATE/TIME: 01/15/2018 5:55 pm REASON FOR STUDY: chest pressure COMPARISON: Chest x-ray 10/29/2015 TECHNIQUE: CT scan performed of the chest without intravenous contrast. Images reviewed with lung, soft tissue and bone windows. Reconstructed coronal and sagittal MPR images reviewed. All images st ored on PACS. All CT scanners at this facility use dose modulation, iterative reconstruction, and/or weight based d osing when appropriate to reduce radiation dose to as low as reasonably achievable (ALARA). [facility]: Dose Right [facility]: CareDose [facility]: Dose Right [facility]: Teradose 4D [facility]: Smart [employer] RADIATION DOSE: mGy. LIMITATIONS: No technical limitations. FINDINGS: LUNGS AND PLEURA: No masses, infiltrates, pneumothorax. No pleural effusions, calcificati ons. HILAR AND MEDIASTINAL STRUCTURES: No identified masses or abnormal nodes. No obvious aneurysm. HEART AND VASCULAR STRUCTURES: No aneurysm. No pericardial effusion. UPPER ABDOMEN: No significant findings. Limited exam. THYROID AND OTHER SOFT TISSUES: No masses. No adenopathy. BONES: No significant finding. HARDWARE: None in the chest. OTHER: No other significant findings. IMPRESSION: NO SIGNIFICANT FINDING ON NON-CONTRASTED CHEST CT. TECHNICAL DOCUMENTATION: JOB ID: [id number] Quality ID # 436: Final reports with documentation of one or more dose reduction techniques (e.g., Au tomated exposure control, adjustment of the mA and/or kV according to patient size, use of iterative reconstruction technique) 2010 [employer]- All Rights Reserved Reading location - IP/workstation name: [email or web address]
[2018-01-15 18:23] LABS: ALANINE AMINOTRANSFERASE 21 U/L (9-52); ALBUMIN 4.3 g/dL (3.5-5.0); ALKALINE PHOSPHATASE 44 U/L (38-126); ANION GAP 12 (5-19); ASPARTATE AMINO TRANSFERASE 19 U/L (14-36); BILIRUBIN,DIRECT 0.2 mg/dL (0.0-0.4); BILIRUBIN,TOTAL 0.3 mg/dL (0.2-1.3); BLOOD UREA NITROGEN 10 mg/dL (7-20); CALCIUM 9.8 mg/dL (8.4-10.2); CARBON DIOXIDE 27 mmol/L (22-30); CHLORIDE 105 mmol/L (98-107); GLUCOSE 90 mg/dL (75-110); POTASSIUM 3.5 mmol/L (3.6-5.0); SODIUM 143.8 mmol/L (137-145)
[2018-01-15 18:27] LABS: APPEARANCE,URINE CLEAR; BILIRUBIN,URINE NEGATIVE (NEGATIVE); COLOR,URINE YELLOW; GLUCOSE, URINE NEGATIVE (NEGATIVE); KETONES,URINE NEGATIVE (NEGATIVE); LEUKOCYTE ESTERASE,URINE NEGATIVE (NEGATIVE); NITRITE,URINE NEGATIVE (NEGATIVE); PROTEIN,URINE NEGATIVE (NEGATIVE); URINE SPECIFIC GRAVITY 1.006; UROBILINOGEN,URINE NEGATIVE mg/dL (<2.0)
[2018-01-15 18:53] VITALS: BP 144/86
--- NOTE | 2018-01-15 21:51 | EKG REPORT ---
SEVERITY:- NORMAL ECG - SINUS RHYTHM : Confirmed by: Luz Marina Liriano MD 15-Jan-2018 21:50:48
== END 2018-01-15 18:54 | disposition home or self-care (01) ==
LOC: ER 16:54
DX: R10.2 Pelvic and perineal pain (principal); R07.9 Chest pain, unspecified; R11.0 Nausea; I10 Essential (primary) hypertension; Z88.6 Allergy status to analgesic agent; Z87.891 Personal history of nicotine dependence
CPT/HCPCS: 93005; 99284; 36415; 84702; 85025; 80053; 81001; 71250; 93010; J3490

== ENCOUNTER 2019-05-31 12:43 | Emergency (ER) | payer MEDICAID ==
[2019-05-31] MEDS ORDERED: ACETAMINOPHEN 325 MG TABLET PO ONE (12:59)
--- NOTE | 2019-05-31 13:03 | ER Document Report ---
ED Medical Screen (RME) - General Chief Complaint: Jaw Pain Stated Complaint: LEFT FACIAL/TOOTH PAIN Time Seen by Provider: 05/31/19 12:57 Primary Care Provider: GIUSEPPE GOEL MD [Primary Care Provider] - Follow up as needed Notes: Patient is a 28-year-old female with past medical history of hypertension who presents the emergency department with a headache. Patient states that her headache started about 3 hours ago. Patient states that the pain is behind her left ear. Patient also states that she has left upper jaw pain. Exam: Crying because the pain. 5 out of 5 strength in upper and lower extremiti es. Blood pressure 193/123. I have greeted and performed a rapid initial assessment of this patient. A comprehensive ED assessment and evaluation of the patient, analysis of test results and completion of medical decision making process will be conducted by an additional ED providers. TRAVEL OUTSIDE OF THE [place] IN LAST 30 DAYS: No - Related Data Allergies/Adverse Reactions: hydrocodone [From [place]] Allergy (Verified 05/31/19 12:54) ketorolac [From Toradol] Allergy (Verified 05/31/19 12:54) tramadol Allergy (Verified 05/31/19 12:54) diphenhydramine [From Benadryl] Adverse Reaction (Verified 05/31/19 12:54) Past Medical History - Past Medical History Cardiac Medical History: Reports: Hx Hypertension - is on labatolol took today takes bid. Has severe tooth ache Neurological Medical History: Reports: Hx Migraine Renal/ Medical History: Reports: Hx Pelvic Inflammatory Disease. Denies: Hx Peritoneal Dialysis Musculoskeltal Medical History: Reports Hx Arthritis, Reports Hx Musculoskeletal Trauma Past Surgical History: Reports: Hx Oral Surgery - wisdom teeth - Immunizations Immunizations up to date: No Hx Diphtheria, Pertussis, Tetanus Vaccination: No Doctor's Discharge - Discharge Referrals: GIUSEPPE GOEL MD [Primary Care Provider] - Follow up as needed
--- NOTE | 2019-05-31 13:25 | RADIOLOGY REPORT (SQ) ---
EXAM DESCRIPTION: CT HEAD WITHOUT COMPLETED DATE/TIME: 05/31/2019 1:11 pm REASON FOR STUDY: headache; hypertension COMPARISON: None. TECHNIQUE: Axial images acquired through the brain without intravenous contrast. Images reviewed wi th bone, brain and subdural windows. Additional sagittal and coronal reconstructions were generated. Images stored on PACS. All CT scanners at this facility use dose modulation, iterative reconstruction, and/or weight based d osing when appropriate to reduce radiation dose to as low as reasonably achievable (ALARA). [facility]: Dose Right [facility]: CareDose [facility]: Dose Right [facility]: Teradose 4D [facility]: [employer] LIMITATIONS: None. FINDINGS: There is no acute intracranial hemorrhage, vascular territorial infarct, extra-axial fluid collection, mass effect, or midline shift. There is no effacement of the cerebral sulci or basal sal[place]on barachnoid cisterns. The [place]-white matter differentiation is preserved. The caliber of the ventric les is concordant with the degree of sulcation. There is a partially empty sella ; there is no associated cerebellar tonsillar herniation or flatteni ng of the posterior aspects of the globes. The orbits are intact. The paranasal sinuses are clear. There is no calvarial fracture. IMPRESSION: No acute intracranial abnormality. EVIDENCE OF ACUTE STROKE: NO. COMMENT: Quality ID # 436: Final reports with documentation of one or more dose reduction techniques (e.g., Automated exposure control, adjustment of the mA and/or kV according to patient size, use of iterative reconstruction technique) TECHNICAL DOCUMENTATION: JOB ID: [id number] [employer]- All Rights Reserved Reading location - IP/workstation name: [email or web address]
[2019-05-31 13:41] LABS: ABSOLUTE BASOPHILS # (AUTO) 0.1 10^3/uL (0.0-0.2); ABSOLUTE EOSINOPHILS # (AUTO) 0.1 10^3/uL (0.0-0.6); ABSOLUTE LYMPHOCYTES (AUTO) 2.3 10^3/uL (0.5-4.7); ABSOLUTE MONOCYTES (AUTO) 0.4 10^3/uL (0.1-1.4); ABSOLUTE NEUT (AUTO) 5.1 10^3/uL (1.7-8.2); BASOPHILS % (AUTO) 1.2 % (0-2); EOSINOPHILS % (AUTO) 0.9 % (0-6); HEMATOCRIT 40.7 % (36.0-47.0); HEMOGLOBIN 13.4 g/dL (12.0-15.5); LYMPHOCYTES % (AUTO) 28.5 % (13-45); MEAN CORPUSCULAR HEMOGLOBIN 26.7 pg (27.0-33.4); MEAN CORPUSCULAR HGB CONC 32.8 g/dL (32.0-36.0); MEAN CORPUSCULAR VOLUME 81 fl (80-97); MONOCYTES % (AUTO) 4.9 % (3-13); PLATELET COUNT 292 10^3/uL (150-450); RED BLOOD COUNT 5.01 10^6/uL (3.72-5.28); RED CELL DISTRIBUTION WIDTH 13.9 % (11.5-14.0); SEGMENTED NEUTROPHILS % (AUTO) 64.5 % (42-78); TOTAL CELLS COUNTED % (AUTO) 100 %; WHITE BLOOD COUNT 7.9 10^3/uL (4.0-10.5)
[2019-05-31] MEDS ORDERED: MORPHINE SULFATE 10 MG/ML INJ IV ONE ×2 (14:10→15:14)
[2019-05-31] MEDS ORDERED: ONDANSETRON HCL INJ/PF 4 MG/2 ML SDV IV ONE (14:11)
[2019-05-31] MEDS ORDERED: NORMAL SALINE 1000 ML 1,000 ML IV ONE (14:12)
[2019-05-31 14:26] LABS: ALBUMIN 4.9 g/dL (3.5-5.0); ALKALINE PHOSPHATASE 69 U/L (38-126); ANION GAP 12 (5-19); ASPARTATE AMINO TRANSFERASE 18 U/L (14-36); BILIRUBIN,DIRECT 0.1 mg/dL (0.0-0.4); BILIRUBIN,TOTAL 0.3 mg/dL (0.2-1.3); BLOOD UREA NITROGEN 6 mg/dL (7-20); CALCIUM 9.8 mg/dL (8.4-10.2); CARBON DIOXIDE 28 mmol/L (22-30); CHLORIDE 100 mmol/L (98-107); GLUCOSE 112 mg/dL (75-110); TOTAL PROTEIN 8.9 g/dL (6.3-8.2)
[2019-05-31] MEDS ORDERED: POTASSIUM CHLORIDE 20 MEQ PACKET PO ONE (15:14)
[2019-05-31] MEDS ORDERED: HYDROMORPHONE HCL INJ/PF 2 MG/ML AMPULE IV ONE (16:05)
--- NOTE | 2019-05-31 16:39 | RADIOLOGY REPORT (SQ) ---
EXAM DESCRIPTION: CT FACIAL AREA WITHOUT COMPLETED DATE/TIME: 05/31/2019 4:21 pm REASON FOR STUDY: severe facial pain, left maxillary COMPARISON: None. TECHNIQUE: Noncontrasted images through the facial bones and orbits windowed for bone and soft tissu e. Additional coronal and sagittal reconstructed images reviewed. All images stored on PACS. All CT scanners at this facility use dose modulation, iterative reconstruction, and/or weight based d osing when appropriate to reduce radiation dose to as low as reasonably achievable (ALARA). [facility]: Dose Right [facility]: CareDose [facility]: Dose Right [facility]: Teradose 4D [facility]: [employer] RADIATION DOSE: mGy. LIMITATIONS: None. FINDINGS: FACIAL BONES: No fracture or bone lesion. ORBITS: Intact. No fracture. Symmetric intact globes and retroorbital soft tissues. PARANASAL SINUSES: Clear. No significant mucosal thickening, mass or fluid. No nasal polyps. Maxill isaac sinus outlets are patent. SOFT TISSUES: No mass or edema. INFERIOR BRAIN: Limited view. No acute findings. OTHER: No other significant finding. IMPRESSION: NO ACUTE FINDINGS. TECHNICAL DOCUMENTATION: JOB ID: [id number] Quality ID # [id number]: Final reports with documentation of one or more dose reduction techniques (e.g., Au tomated exposure control, adjustment of the mA and/or kV according to patient size, use of iterative reconstruction technique) 2010 [employer]- All Rights Reserved Reading location - IP/workstation name: [email or web address]
--- NOTE | 2019-05-31 16:56 | ER Document Report ---
ED General - General Chief Complaint: Jaw Pain Stated Complaint: LEFT FACIAL/TOOTH PAIN Time Seen by Provider: 05/31/19 12:57 Primary Care Provider: GIUSEPPE GOEL MD [Primary Care Provider] - Follow up as needed Mode of Arrival: Ambulatory Information source: Patient TRAVEL OUTSIDE OF THE [place] IN LAST 30 DAYS: No COUNTRY TRAVELED TO/FROM: [facility] Notes: Patient comes in complaining of facial pain. She states the pain is on the left maxillary side of her face. She states this pain started this morning all of a sudden. She states it is severe. It is constant. Nothing makes it better or worse. It does radiate into her left jaw. It is a sharp type of pain. She denies any vision changes. No trouble swallowing. Although there was some complaints that I saw initially in nursing notes of numbness she denies numbness for me. She has no trouble speaking. No recent trauma. No fevers or rashes. She denies any specific tooth pain. - Related Data Allergies/Adverse Reactions: hydrocodone [From [place]] Allergy (Verified 05/31/19 12:54) ketorolac [From Toradol] Allergy (Verified 05/31/19 12:54) tramadol Allergy (Verified 05/31/19 12:54) diphenhydramine [From Benadryl] Adverse Reaction (Verified 05/31/19 12:54) Past Medical History - General Information source: Patient - Social History Smoking Status: Current Every Day Smoker Chew tobacco use (# tins/day): No Frequency of alcohol use: None Drug Abuse: None Family History: CAD, CVA, DM, Hyperlipidemia, Hypertension, Malignancy, Thyroid Disfunction Patient has suicidal ideation: No Patient has homicidal ideation: No - Past Medical History Cardiac Medical History: Reports: Hx Hypertension - is on labatolol took today takes bid. Has severe tooth ache Neurological Medical History: Reports: Hx Migraine Renal/ Medical History: Reports: Hx Pelvic Inflammatory Disease. Denies: Hx Peritoneal Dialysis Musculoskeletal Medical History: Reports Hx Arthritis, Reports Hx Musculoskeletal Trauma Past Surgical History: Reports: Hx Oral Surgery - wisdom teeth - Immunizations Immunizations up to date: No Hx Diphtheria, Pertussis, Tetanus Vaccination: No Review of Systems - Review of Systems Constitutional: denies: Chills, Fever EENT: denies: Eye pain, Eye discharge, Blurred vision, Nose congestion Cardiovascular: denies: Chest pain, Palpitations Respiratory: denies: Cough, Short of breath -: Yes All other systems reviewed and negative Physical Exam - Vital signs Vitals: Resp 20 05/31/19 13:16 Interpretation: Hypertensive - General General appearance: Appears well, Alert - HEENT Head: Normocephalic, Atraumatic Eyes: Normal Pupils: PERRL Sinus: Tenderness - Left maxillary sinus does have tenderness to palpation Nasal: Normal Mouth/Lips: Normal Mucous membranes: Moist Pharynx: Normal Neck: Normal - Respiratory Respiratory status: No respiratory distress Chest status: Nontender Breath sounds: Normal Chest palpation: Normal - Cardiovascular Rhythm: Regular Heart sounds: Normal auscultation Murmur: No - Abdominal Inspection: Normal Distension: No distension Bowel sounds: Normal Tenderness: Nontender Organomegaly: No organomegaly - Back Back: Normal, Nontender - Extremities General upper extremity: Normal inspection, Nontender, Normal color, Normal ROM, Normal temperature General lower extremity: Normal inspection, Nontender, Normal color, Normal ROM, Normal temperature, Normal weight bearing. 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 No: Pronator drift Sensory: Normal - Psychological Associated symptoms: Normal affect, Normal mood - Skin Skin Temperature: Warm Skin Moisture: Dry Skin Color: Normal Course - Re-evaluation Re-evalutation: 05/31/19 16:55 Patient presents with severe left maxillary facial pain. The cause of the pain at this time is unclear. She does not appear to have a sinusitis. I cannot find any focal tooth infection. She has had no trauma. There is no evidence that she is having a CVA. I see no evidence that this is referred pain such as cardiac. Possibly this is trigeminal neuralgia however patient seems very young for this. I am going to try a trial of antibiotics in case this is an occult tooth or sinus infection I am also going to give the patient pain medicine. However this continues I have instructed her that she may need to see a neurologist about trigeminal neuralgia. - Vital Signs Vital signs: Temp Pulse Resp BP Pulse Ox 11 L 205/110 H 100 05/31/19 15:10 05/31/19 14:30 05/31/19 15:10 - Laboratory Result Diagrams: 05/31/19 13:29 05/31/19 13:29 Laboratory results interpreted by me: 05/31/19 05/31/19 13:29 13:29 [facility] 26.7 L Potassium 3.0 L* BUN 6 L Glucose 112 H Total Protein 8.9 H - Diagnostic Test Radiology reviewed: Image reviewed, Reports reviewed - EKG Interpretation by Me EKG shows normal: Sinus rhythm Rate: Normal - 67 Rhythm: NSR [place]/QRS: No: RBBB, LBBB Discharge - Discharge Clinical Impression: Left facial pain, Uncontrolled hypertension Condition: Stable Disposition: HOME, SELF-CARE Instructions: Trigeminal Neuralgia ([facility]) Additional Instructions: Please call your primary doctor as soon as possible to arrange follow-up. If you do not get relief with antibiotics and pain medicine then please consider seeing a neurologist and discussing trigeminal neuralgia. Prescriptions: Amoxicillin 1 tab PO TID #30 tab Oxycodone HCl/Acetaminophen [Percocet 5-325 mg Tablet] 1 - 2 tab PO Q4H PRN #15 tablet PRN Reason: Referrals: GIUSEPPE GOEL MD [Primary Care Provider] - Follow up in 3-5 days
[2019-05-31 17:16] VITALS: BP 194/90
--- NOTE | 2019-06-01 09:59 | EKG REPORT ---
SEVERITY:- ABNORMAL ECG - SINUS RHYTHM CONSIDER LEFT VENTRICULAR HYPERTROPHY : Confirmed by: Luz Marina Liriano MD 01-Jun-2019 09:58:21
== END 2019-05-31 17:16 | disposition home or self-care (01) ==
LOC: ER 12:43
DX: R51 Headache (principal); I10 Essential (primary) hypertension; R68.84 Jaw pain; K08.9 Disorder of teeth and supporting structures, unspecified; Z88.6 Allergy status to analgesic agent; F17.200 Nicotine dependence, unspecified, uncomplicated
CPT/HCPCS: 36415; 85025; 80053; 84484; 70450; 70486; J2270; J1170; J2405; J7030; J3490; 93005; 93010; 96361; 96374; 96375; 96376; 99284

== ENCOUNTER 2019-08-25 11:20 | Emergency (ER) | payer MEDICAID ==
--- NOTE | 2019-08-25 11:44 | ER Document Report ---
HPI - HPI Patient complains to provider of: right hand pain Time Seen by Provider: 08/25/19 11:34 Onset: This morning Severity: Severe Pain Level: 5 Context: 28-year-old female presents emergency department with complaints of right thumb hand pain after she shut her right hand in the car door earlier this morning. Denies previous history of injury to the hand. No other complaints such as f ever vomiting diarrhea. Patient has full range of motion to her hand. Patient reports she took 6 [id number] Tylenol approximately 2 hours ago. She is right-handed. Associated Symptoms: None Exacerbated by: Denies Relieved by: Denies Similar symptoms previously: No Recently seen / treated by doctor: No - CONSTITUTIONAL Constitutional: DENIES: Fever, Chills - REPRODUCTIVE LMP: Aug 06, 2019 Reproductive: DENIES: : - MUSCULOSKELETAL Musculoskeletal: REPORTS: Extremity pain - right thumb Past Medical History - General Information source: Patient Last Menstrual Period: 08/06/19 - Social History Smoking Status: Current Every Day Smoker Cigarette use (# per day): Yes Frequency of alcohol use: None Drug Abuse: None Family History: CAD, CVA, DM, Hyperlipidemia, Hypertension, Malignancy, Thyroid Disfunction Patient has suicidal ideation: No Patient has homicidal ideation: No - Past Medical History Cardiac Medical History: Reports: Hx Hypertension - is on labatolol took today takes bid. Has severe tooth ache Neurological Medical History: Reports: Hx Migraine Renal/ Medical History: Reports: Hx Pelvic Inflammatory Disease. Denies: Hx Peritoneal Dialysis Musculoskeletal Medical History: Reports Hx Arthritis, Reports Hx Musculoskeletal Trauma Past Surgical History: Reports: Hx Oral Surgery - wisdom teeth - Immunizations Immunizations up to date: No Hx Diphtheria, Pertussis, Tetanus Vaccination: No Vertical Provider Document - CONSTITUTIONAL Agree With Documented VS: Yes Exam Limitations: No Limitations General Appearance: WD/WN, No Apparent Distress - Tearful - INFECTION CONTROL TRAVEL OUTSIDE OF THE [place] IN LAST 30 DAYS: No COUNTRY TRAVELED TO/FROM: [place] - HEENT HEENT: Atraumatic, Normocephalic - NECK Neck: Supple - RESPIRATORY Respiratory: No Respiratory Distress - CARDIOVASCULAR Cardiovascular: Regular Rate - MUSCULOSKELETAL/EXTREMETIES Musculoskeletal/Extremeties: Tender - Right thumb and proximal first digit tender to palpate no scaphoid tenderness no erythema no swelling noted no obvious deformity. subungal hematoma noted to right thumbnail, nail intact, cap refill <2 sec - NEURO Level of Consciousness: Awake, Alert, Appropriate Motor/Sensory: No Motor Deficit - DERM Integumentary: Warm, Dry Course - Re-evaluation Re-evalutation: 08/25/19 12:31 28-year-old female presents with right hand thumb pain after she shut her hand in the car door last night. Subungual hematoma noted to left thumbnail. Nail intact. X-ray negative Hand X-Ray 08/25/19 11:38 IMPRESSION: NEGATIVE STUDY OF THE RIGHT HAND. NO RADIOGRAPHIC EVIDENCE OF ACUTE INJURY. 08/25/19 12:50 Attempted to relieve subungual hematoma with cautery. Pressure applied to the middle of the nail to the middle of the hematoma. Patient was only able to tolerate very little pressure to the nail. Very small amount of blood return. Patient declined further intervention. She was instructed on the importance of pressing the nail to relieve some more blood she was also treated with a finger splint dressing to protect the nail. Patient also was treated with Percocet for pain. Patient was instructed that her blood pressure very high. She reports she is aware of that she thinks is due to the pain she is in. She reports she plans on going home and laying down. She was instructed on signs and symptoms of infection instructed return here for concerns she verbalized understanding to all instructions. - Vital Signs Vital signs: Temp Pulse Resp BP Pulse Ox 98.7 F 98 16 160/123 H 98 08/25/19 11:31 08/25/19 11:31 08/25/19 11:31 08/25/19 11:31 08/25/19 11:31 - Diagnostic Test Radiology reviewed: Image reviewed, Reports reviewed Procedures - Nail Trephanation/Removal Right Thumb Time completed: 12:53 Betadine prep applied: No - ns/shurclens Method of Drainage: Nail cauterized Sterile Dressing Applied: Yes Finger Splint: Yes Notes: 08/25/19 12:53 Pressure applied to the middle of the patient's thumb to the middle of the nailb ed, very little blood obtained. Patient unable to tolerate further intervention. Discharge - Discharge Clinical Impression: Right hand pain Subungual hematoma of right thumb Qualifiers: Encounter type: initial encounter Qualified Code(s): S60.111A - Contusion of right thumb with damage to nail, initial encounter Condition: Stable Disposition: HOME, SELF-CARE Instructions: Ice & Elevation ([facility]), Oral Narcotic Medication ([facility]), Subungual Hematoma ([facility]), Temporary Splint ([facility]) Additional Instructions: *You have been evaluated for right hand pain, subungual hematoma *Maintain the dressing and finger splint to protect her thumb *Rest/Ice/Elevate hand *Follow up with your primary care provider within 1 week for recheck *Take Percocet for the acute pain *Return to ED for worsening condition, changes, needs, signs of infection such as redness swelling warmth increased pain Monitor your blood pressure. Your blood pressure was elevated today. This may be because you were anxious, in pain or because you need medication. It is important to follow up with your primary care provider for full evaluation. Prescriptions: Oxycodone HCl/Acetaminophen [Percocet 5-325 mg Tablet] 1 tab PO ASDIR PRN #10 tablet PRN Reason: Forms: Elevated Blood Pressure Referrals: GIUSEPPE GOEL MD [Primary Care Provider] - Follow up in 3-5 days
--- NOTE | 2019-08-25 12:11 | RADIOLOGY REPORT (SQ) ---
EXAM DESCRIPTION: HAND RIGHT 3 VIEWS COMPLETED DATE/TIME: 08/25/2019 11:56 am REASON FOR STUDY: hit in car door pain COMPARISON: None. EXAM PARAMETERS: NUMBER OF VIEWS: Three views. TECHNIQUE: AP, lateral and oblique radiographic images acquired of the right hand. LIMITATIONS: None. FINDINGS: MINERALIZATION: Normal. BONES: No acute fracture or dislocation. No worrisome bone lesions. JOINTS: No effusions. SOFT TISSUES: No soft tissue swelling. No foreign body. OTHER: No other significant finding. IMPRESSION: NEGATIVE STUDY OF THE RIGHT HAND. NO RADIOGRAPHIC EVIDENCE OF ACUTE INJURY. TECHNICAL DOCUMENTATION: JOB ID: [id number] [employer]- All Rights Reserved Reading location - IP/workstation name: [email or web address]
[2019-08-25 13:02] VITALS: BP 162/117
== END 2019-08-25 13:04 | disposition home or self-care (01) ==
LOC: ER 11:20
DX: S60.111A Contusion of right thumb with damage to nail, initial encounter (principal); M79.644 Pain in right finger(s); W23.0XXA Caught, crushed, jammed, or pinched between moving objects, initial encounter; F17.210 Nicotine dependence, cigarettes, uncomplicated; I10 Essential (primary) hypertension
CPT/HCPCS: 99283